=== PATIENT | female | born 1950 | race African-American/Black ===

== ENCOUNTER 2019-07-18 23:48 | Inpatient (IN) | payer OTHER ==
[~2019-07-18] VITALS: Ht 162.6 cm; Wt 98.7 kg
--- NOTE | ~2019-07-18 | HC ---
[facility] [place] [address] CONSULTATION Name: ZEINA HASTINGS Room #: 246-P [facility] IN M.R.#: [id number] Admission: 07/19/19 Attend Phys: Tank Castro MD Discharge: Date of : 54 Report #: [id number] THIS REPORT FOR: //name// CC: Tank SOTO PCP DATE OF SERVICE: 07/19/2019 CARDIOLOGY CONSULTATION HISTORY OF PRESENT ILLNESS: The patient is a 69-year-old -[place] female. She presents with some progressive shortness of breath, dyspnea, and hypertensive crisis. Systolic pressures were 190-200 in the Emergency Room with some evidence of cephalization of volume overload. Treated with IV Lasix. I initiated on a nitro drip as well as lisinopril. Blood pressures have improved some. Also, IV Lasix b.i.d. The EKG is sinus rhythm with LVH by voltage criteria, and decreased R-wave progression. Cannot rule out a prior septal infarct. She has had some chest pressure intermittently. She states she is minimally active. She is retired from [employer]. She lives with her son. She is . She has not seen physicians in over 10 years. She does not believe in blood pressure medications because she was not born with hypertension. She takes some herbal and she states that she cannot necessarily name them. She was recommended blood pressure and cholesterol medicines 10 years ago. PAST MEDICAL HISTORY: Positive for hypertension, obesity, hypercholesterolemia. No prior surgeries, tobacco use. SOCIAL HISTORY: She is , 3 children. Retired from [employer]. No alcohol. One pack a day since she was 22 years old. REVIEW OF SYSTEMS: Essentially negative except for some progressive dyspnea and generalized fatigue, some visual blurry vision in left eye, she states. LABORATORY DATA: LDL was elevated in the 140s, creatinine was okay. Creatinine was 0.8, potassium 3.0, sodium 145. H and H was 11.5 and 36.3. TSH 0.52. Troponin 0.08. PHYSICAL EXAMINATION: GENERAL: She is pleasant, alert. VITAL SIGNS: Blood pressure is currently 150s to 160s, pulse is 90s. HEENT: Eyes reveal xanthelasmas. Pharynx is clear. NECK: Shows preserved upstrokes without JVD or bruits. LUNGS: Clear. Anteriorly, some diminished breath sounds in the bases with a few crackles. CARDIOVASCULAR: Soft S4, S1, S2. No significant murmur. [facility] [address] [place] [address] CONSULTATION Name: ZEINA HASTINGS Room #: 246-P ADM IN ..#: [id number] Admission: 07/19/19 Attend Phys: Tank Castro MD Discharge: Date of : 54 Report #: [id number] ABDOMEN: Soft, nontender. EXTREMITIES: Reveal trace of edema, left greater than right. Distal pulses are intact. MUSCULOSKELETAL: Mild arthritic changes. ASSESSMENT: 1. Hypertensive crisis. 2. Acute presumed diastolic dysfunction with evidence of significant LVH, probable secondary to above. 3. Hypercholesterolemia. 4. Tobacco use. RECOMMENDATIONS AND PLAN: We will wean off the nitro drip. We will agree with lisinopril, would increase to 40 mg a day. We will add amlodipine 5. Bystolic would be best served as a vasodilating beta bakari 10 mg a day, Aldactone 25. This will be somewhat difficult to control hypertension, but I suspect there is definitely a sodium component to this as well as weight and activity may well benefit. We will obtain echo and EKG in the morning. We will consider plus minus stress testing this hospitalization or as an outpatient. We will continue to follow with you. Continue with the IV Lasix today, weaning off the nitro drip, initiating the p.o. medications. Thank you for asking me to assist in the care of this patient. By: 0932 [id number] /nt
[2019-07-18 23:48] VITALS: BP 262/154
[2019-07-19] VITALS (54 sets, daily range): BP systolic 122–199; BP diastolic 59–116
[2019-07-19 00:18] LABS: BASOPHILS 1.3 % (0.0-2.0); EOSINOPHILS 1.8 % (0.0-3.0); HEMATOCRIT 36.3 % (37.0-47.0); HEMOGLOBIN 11.5 gm/dL (12.0-15.0); LYMPHOCYTES 49.8 % (24.0-44.0); MCH 26.3 pg (26.0-34.0); MCHC 31.7 g/dL (28.0-37.0); MCV 82.9 fL (80.0-100.0); MONOCYTES 5.8 % (1.0-8.0); PLATELET COUNT 367 thou/uL (150-400); POLYS 41.3 % (36.0-66.0); RBC 4.38 mil/uL (4.20-5.00); RDW 15.1 % (10.5-14.5); WBC 14.6 thou/uL (4.0-11.0)
[2019-07-19 00:33] LABS: ALBUMIN 3.3 g/dL (3.4-5.0); ANION GAP 12 mmol/L (7-16); BUN 9 mg/dL (7-18); CHLORIDE 100 mmol/L (98-107); CO2 29 mmol/L (21-32); CREATININE 0.9 mg/dL (0.6-1.0); GLUCOSE 197 mg/dL (74-106); SGOT 33 U/L (15-37); SGPT 39 U/L (30-65); SODIUM 141 mmol/L (136-145); TOTAL BILIRUBIN 0.3 mg/dL (<0.1-1.0); TOTAL PROTEIN 8.5 g/dL (6.4-8.2); TROPONIN-I <0.06 ng/mL (<0.06)
[2019-07-19] MEDS ORDERED: IBU600 MG PO (00:38)
[2019-07-19 01:32] LABS: LARGE PLATELETS OCCASIONAL
--- NOTE | 2019-07-19 02:00 | NUR ---
Pt arrived ICU via stretcher, accompanied with ER staff and RT to room 246. She is being admit for Flash Pulmonary Edema. She appears tachypnic at rest. RR in low 30's and denies of any CP. RT placed pt back on BIPAP at this time. ST on monitor, BP 199/97 mmHg upon arrival. Continue Nitro gtt to maintain BP < 160 mmHg. Hx obtained, assessment completed. Care plans are initiated, continue working toward goals.
[2019-07-19 05:44] LABS: ANION GAP 12 mmol/L (7-16); BUN 9 mg/dL (7-18); CALCIUM 8.8 mg/dL (8.5-10.1); CHLORIDE 102 mmol/L (98-107); CHOLESTEROL 211 mg/dL (<200); CO2 31 mmol/L (21-32); CREATININE 0.8 mg/dL (0.6-1.0); GLUCOSE 123 mg/dL (74-106); HDL CHOLESTEROL 52 mg/dL (>40); LDL CHOLESTEROL 145 mg/dL (<100); SODIUM 145 mmol/L (136-145); TC:HDL 4.1 Ratio (Not establshd); TRIGLYCERIDE 70 mg/dL (<150); TROPONIN-I 0.08 ng/mL (<0.06); VLDL 14 mg/dL (<40)
[2019-07-19 05:49] LABS: URINE BILIRUBIN NEGATIVE (Negative); URINE BLOOD TRACE (Negative); URINE CLARITY CLEAR; URINE COLOR YELLOW; URINE GLUCOSE-RANDOM* NEGATIVE (Negative); URINE KETONES NEGATIVE (Negative); URINE LEUKOCYTES-REFLEX NEGATIVE (Negative); URINE NITRITE-REFLEX NEGATIVE (Negative); URINE PROTEIN (DIPSTICK) 2+ (Negative); URINE SPECIFIC GRAVITY 1.025 (1.005-1.035); URINE UROBILINOGEN 0.2 E.U./dl (0.2-1.0)
[2019-07-19 05:50] LABS: SERUM ASSESSMENT Clear
[2019-07-19 06:10] LABS: BACTERIA-REFLEX 1-9 Few /HPF (None Seen); CASTS None Seen /LPF (None Seen); CRYSTALS None Seen /LPF (None Seen); SQUAMOUS 0-3 Few /LPF (0-3); URINE RBC None Seen /HPF (0-2); URINE WBC-REFLEX None Seen /HPF (0-5)
--- NOTE | 2019-07-19 06:40 | NUR ---
BIPAP was removed per patient requested. Maintain O2 sat >96% on 3 liters via N/C. Less shortness of breath this am.
--- NOTE | 2019-07-19 15:16 | NUR ---
ASSUMED CARE OF PATIENT AT 1430. SPOKE WITH DR. SHARMA ABOUT NEED FOR CTA CHEST ORDERED. PHYSICIAN WOULD LIKE CTA TO BE DISCONTINUED.
--- NOTE | 2019-07-19 16:23 | NUR ---
NITRO GTT TITRATED OFF. WILL MONITOR BLOOD PRESSURES TO SEE IF PATIENT TOLERATES WITHOUT.
[2019-07-20] VITALS (21 sets, daily range): BP systolic 132–192; BP diastolic 56–124
[2019-07-20 05:34] LABS: CALCIUM 9.1 mg/dL (8.5-10.1); POTASSIUM 3.4 mmol/L (3.5-5.1)
--- NOTE | 2019-07-20 06:00 | NUR ---
PT IS AWAKE AND ALERT. UP TO TOILET SEVERAL TIMES TONIGHT TRYING TO HAVE A STOOL WITH NO SUCCESS., العراقي 350 CC UO THIS SHIFT. SINUS RHYTHM. HAVING SOME ABD CRAMPING. COLACE GIVEN. PT DID SLEEP SOME TONIGHT AFTER BENADRYL GIVEN. WILL CONT TO MONITOR.
--- NOTE | 2019-07-20 09:58 | 2DMMODE ---
[facility] [place] [address] 2 D/M-MODE ECHOCARDIOGRAM Name: ZEINA HASTINGS Room #: 246-P [facility] IN .R.#: [id number] Admission: 07/19/19 Attend Phys: Tank Castro MD Discharge: Date of : 54 Report #: [id number] THIS REPORT FOR: //name// APPROVED REPORT Study performed: 07/20/2019 08:16:23 EXAM: Comprehensive 2D, Doppler, and color-flow Echocardiogram Patient Location: ICU Room #: 246 Status: routine BSA: 2.04 HR: 75 bpm BP: 146/84 mmHg Rhythm: Sinus arrhythmia Indications Short of breath, HTN urgency, CHF, pulmonary edema. 2D Dimensions RVDd: 42.49 mm IVSd: 12.24 (7-11mm) LVOT Diam: 20.82 (18-24mm) LVDd: 54.50 mm PWd: 12.31 (7-11mm) Ascending Ao: 33.28 (22-36mm) LVDs: 47.26 (25-40mm) Aortic Root: 33.89 mm Volumes Left Atrial Volume (Systole) Single Plane 4CH: 52.58 mL Single Plane 2CH: 53.56 mL LA ESV Index: 28.00 mL/m2 Aortic Valve AoV Peak Jeffrey.: 1.18 m/s AO Peak Gr.: 5.55 mmHg LVOT Max P.76 mmHg LVOT Max V: 0.83 m/s NEYMAR Vmax: 2.40 cm2 Mitral Valve E/A Ratio: 2.2 MV Decel. Time: 200.83 ms MV E Max Jeffrey.: 1.10 m/s MV A Jeffrey.: 0.49 m/s MV PHT: 58.24 ms IVRT: 55.36 ms [facility] [place] [address] 2 D/M-MODE ECHOCARDIOGRAM Name: ZEINA HASTNIGS José Miguel Room #: 246-P [facility] IN ..#: [id number] Admission: 07/19/19 Attend Phys: Tank Castro MD Discharge: Date of : 54 Report #: [id number] Pulmonary Valve PV Peak Jeffrey.: 0.67 m/s PV Peak Gr.: 1.81 mmHg Pulmonary Vein P Vein S: 0.41 m/s P Vein D: 0.62 m/s P Vein S/D Ratio: 0.66 Tricuspid Valve TR Peak Jeffrey.: 2.89 m/s RAP Estimate: 15.00 mmHg TR Peak Gr.: 33.34 mmHg PA Pressure: 48.00 mmHg Left Ventricle The left ventricle is normal size. Mild concentric left ventricular hypertrophy. Left ventricular systolic function is moderately decreased. LVEF is 35%. Moderate diastolic dysfunction is present (pseudonormal filling). Right Ventricle Right ventricle is at the upper limits of normal. The right ventricular systolic function is normal. Atria Left atrium is mildly dilated. Right atrium is mildly dilated. Aortic Valve The aortic valve is normal in structure. No aortic regurgitation is present. There is no aortic valvular stenosis. Mitral Valve The mitral valve is normal in structure. Moderate mitral regurgitation. Tricuspid Valve The tricuspid valve is normal in structure. Mild tricuspid regurgitation. Estimated PAP is 45-50mmHg. Pulmonic Valve The pulmonary valve is normal in structure. Mild pulmonic regurgitation. Great Vessels The aortic root is normal in size. The ascending aorta is normal in [facility] [address] [place] [address] 2 D/M-MODE ECHOCARDIOGRAM Name: ZEINA HASTINGS Room #: 246-P ADM IN M.R.#: [id number] Admission: 07/19/19 Attend Phys: Tank Castro MD Discharge: Date of : 54 Report #: [id number] size. IVC is dilated and collapses <50% with inspiration. Pericardium There is no pericardial effusion. <Conclusion> The left ventricle is normal size. Left ventricular systolic function is moderately decreased. LVEF is 35%. Right ventricle is at the upper limits of normal. Left atrium is mildly dilated. Right atrium is mildly dilated. The aortic valve is normal in structure. The mitral valve is normal in structure. Moderate mitral regurgitation. The tricuspid valve is normal in structure. Mild tricuspid regurgitation. Estimated PAP is 45-50mmHg. The pulmonary valve is normal in structure. Mild pulmonic regurgitation. There is no pericardial effusion. <ELECTRONICALLY SIGNED> By: Bari Segal MD 07/20/19956 6 6 Bari Segal MD /INF
--- NOTE | 2019-07-20 10:00 | NUR ---
SR/SINUS ARRHYTHMIA, ZOFRAN GIVEN WITH DECREASE IN NAUSEA, TOLERATED PARTIAL BREAKFAST. C/O OF LEFT LOWER ABDOMINAL DISCOMFORT, FEELS LIKE SHE NEEDS TO HAVE A STOOL. STOOL SOFTENER GIVEN. RECENT INCREASE IN NAUSEA- MILK OF MAGNESIA GIVEN. AMBULATED, RESTING QUIETLY IN CHAIR.
--- NOTE | 2019-07-20 11:55 | NUR ---
TRANSFERRED PER WHEELCHAIR/MONITOR PER [employer], RN AND PT'S SON FOR INITIAL PART OF STRESS TEST.
--- NOTE | 2019-07-20 12:29 | NUR ---
RETURNED FROM [employer] [facility] IN WHEELCHAIR ON MONITOR ACCOMPANIED BY RN AND PT'S SON.
--- NOTE | 2019-07-20 16:09 | EKG ---
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
--- NOTE | 2019-07-20 16:12 | NUR ---
Case opened to follow for dc planning needs. Consult rec'd as the pt does not have a pcp. Chip Mucker visited with the pt and her son at bedside. The pt is a&ox4 and indicates that she lives in a home with lots of steps to her bedroom upstairs. She is normally indep with gait and adl's and does not use an assistive device. She no longer drives and relies on her son for transport. She reports her old pcp is no longer in practice. She is retired and has medicare part A coverage along with her [employer] long term plan to help with her part B expenses. She reports she had a mini stroke years ago and it only affected her lt leg. She gets her scripts at [facility]. Chip Mucker encouraged her to call [employer] customer service to assist her with finding a pcp in her area. Pt seemed reluctant to answer questions. Pt's son was at bedside and he lives with her. She c/o nausea and stomach pain. Nursing updated. Cm role introduced. Pt denied any dc concerns. Will remain available should needs arise.
--- NOTE | 2019-07-20 18:30 | NUR ---
SCHEDULED IV LASIX PREVIOUSLY GIVEN. العراقي DC'D WITH 10CC FLUID REMOVED FROM BALLOON, WELL TOLERATED. PT UP AND DOWN SEVERAL TIMES THROUGHOUT SHIFT TO ATTEMPT TO HAVE A STOOL, UNSUCCESSFULLY. ABDOMINAL DISCOMFORT RESOLVED AT THIS TIME. PT IMPULSIVE, OFTEN FORGETS TO USE CALL LIGHT ESPECIALLY WHEN GETTING OUT OF CHAIR OR OFF BSC. BED/CHAIR ALARM ENABLED APPROPIATELY. TAKING DEEP BREATHS AND COUGH, NONPRODUCTIVE, NOT SHORT OF AIR WITH ACTIVITY. POOR APPETITE, TOLERATING FLUIDS. SON PRESENT, PROVIDING SUPPORT TO HIS MOTHER. UPDATING PT AND SON ON ALL CARES GIVEN.
[2019-07-21 02:47] VITALS: BP 136/67
--- NOTE | 2019-07-21 03:10 | NUR ---
ASSUMED CARE AT 1900, ASSESSMENT COMPLETED. PT REPORTED PAIN IN LEFT ABD RADIATING TO BACK WELL SOME NAUSEA; BLOOD PRESSURE ELEVATED AT START OF SHIFT. GAVE PRN ZOFRAN AND HYDRALAZINE. PT UP TO TOILET, HAD A SMALL, SOFT/LOOSE STOOL. C/O AGAIN OF NAUSEA, THREW UP TWICE LIQUID WITH SOME SMALL BROWN PIECES; GAVE SCHEDULED IVP PEPCID WHICH RELIEVED THE NAUSEA. NPO AT MIDNIGHT FOR STRESS TEST IN AM. ABOUT 0130, PT AND HER SON INFORMED SHE WOULD BE TRANSFERRED TO MS UNIT. SON LEFT BRIEFLY; PT THEN SLIGHTLY AGITATED, GETTING OUT OF BED, STATING SHE WAS LEAVING TO GO HOME. PT STATED SHE WAS UPSET THAT "I AM SEEING THINGS, PEOPLE IN MY ROOM, THINGS THAT AREN'T THERE, AND IT'S BECAUSE OF MEDS YOU ARE GIVING ME IN MY IV. PEOPLE ARE GIVING ME THINGS I DON'T WANT." PT HAD EXPRESSED EARLIER THAT SHE SAW A RAGGEDY AB DOLL ON THE FLOOR. EXPLAINED AT LENGTH WHAT MEDICATIONS SHE HAD RECEIVED OVERNIGHT. EXPLAINED ABOUT THE AMA PROCESS AND THE IMPORTANCE OF UPCOMING MEDICAL TESTS. PT'S SON RETURNED, ALSO STATING SHE MIGHT WANT TO LEAVE. ENCOURAGED PT TO TRANSFER UPSTAIRS TO THE [facility] WHERE IT WAS QUIETER/MORE PRIVACY, COMPLETE THE STRESS TEST TODAY AND DISCUSS CONCERNS WITH THE DOCTOR. REPORT CALLED TO MARÍA ELENA ON [facility] AT 0215, TRANSFERRED BY W/C AT 0230; PT IN STABLE CONDITION, NO FURTHER CONCERNS.
--- NOTE | 2019-07-21 03:33 | NUR ---
PT WAS TRANSFERRED FROM ICU. AXOX4. SON AT BEDSIDE. RW IV REMOVED D/T INFILTRATION WHEN ARRIVED ON UNIT. VSS. PT AND SON INTRODUCED TO UNIT AND ROOM. VERBALIZES UNDERSTADING. EXPLAINED AGAIN EXTENSIVELY ON THE IMPORTACNE OF KEEPING PT ON NPO FOR STRESS TEST IN AM AND HOW INGESTING ANYTHING BEFORE TESTING CAN HAVE RISKS. ALSO HAD A DISCUSSION ABOUT KEEPING PT ON FALL ALARM AND PRECAUTIONS D/T PT'S MEDICAL CONDITION. PT AND SON AGREES AT THIS TIME. NO S/S ACUTE DISTRESS NOTED OR REPORTED AT THIS TIME. WILL CONT TO MONITOR FOR ANY CHANGES IN CONDITION.
[2019-07-21 08:05] VITALS: BP 128/67
[2019-07-21] MEDS ORDERED: BENAZEPRIL HCL40 MG PO (10:24)
[2019-07-21] MEDS ORDERED: FELODIPINE ER10 MG PO (10:24)
[2019-07-21] MEDS ORDERED: BYSTOLIC10 MG PO (10:24)
[2019-07-21] MEDS ORDERED: LASIX 40 MG TAB40 MG PO (10:25)
[2019-07-21 10:32] VITALS: BP 128/67
--- NOTE | 2019-07-21 14:56 | EKG ---
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 Designer: APARNA : 1950 Requested By: Keegan Olivera Order Number: [id number] MD: Solo Vogel Measurements Intervals [place] Rate: 139 P: 50 WV: 95 QRS: 21 QRSD: 97 T: QT: 356 QTc: 542 Interpretive Statements Sinus tachycardia LVH with secondary repolarization abnormality Anterior ST elevation, probably due to LVH No previous ECG available for comparison Electronically Signed On 07-21-2019 14:56:30 GRADER MEAT by Solo Vogel [email or web address] <ELECTRONICALLY SIGNED> By: Solo Vogel MD 07/21/19 1456 56 56 Solo Vogel MD /TEAGN
--- NOTE | 2019-07-21 14:57 | EKG ---
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
--- NOTE | 2019-07-21 15:02 | NUR ---
CARE TEAM INDICATED THAT PT IS MEDICALLY STABLE TO DC HOME THIS DAY. NO OTHER CM INTERVENTION INDICATED. CASE CLOSED.
--- NOTE | 2019-07-21 18:11 | NUR ---
Assumed pt care this am, pt went down for a cardiac stress test. VS have been stable, medications and diet were well tolerated. Son came to visit and was rude wanting to speak to the MD with regards to pt being dc. Pt and sons expectations were to be DC yesterday, informed pt a d son repeatedly as per Dr. Winn, we are awaitnig the results of the stress test then he will make a decision to dc. Pt and family were getting irritable and wanted answers elenita, text MD, informed house sup as well. Reached out to the cardiac team for follow up. Was able to covince pt not to go AMA, Spoke to Carolyn advise she is low probability and is dc from their end. INformed LUCY MONTOYA instructions and prescriptions givne to the pt and son. Pt does not go to any doctor and self medicates using herbs and natural remedies. POC followed, pt was able to ambulate the halls with ease. POC followed no signs or verbalizations of distress have been noted. IV removed, pt was picked up by the son, pt is now dc
== END 2019-07-21 18:21 | disposition home or self-care (01) | DRG 291 ==
LOC: ER 23:48 → EROBS 07-19 01:25 → ICU 07-19 01:25 → 4W 07-21 02:45
PROVIDERS: Emergency Medicine; Nurse Practitioner Acute Care; ADMIT Hospitalist
PROC: 5A09357 Assistance with Respiratory Ventilation, Less than 24 Consecutive Hours, Continuous Positive Airway Pressure (ICD-10-PCS; principal; 2019-07-19)
DX: I11.0 Hypertensive heart disease with heart failure (principal); J96.01 Acute respiratory failure with hypoxia; I16.1 Hypertensive emergency; J81.1 Chronic pulmonary edema; J44.1 Chronic obstructive pulmonary disease with (acute) exacerbation; I50.33 Acute on chronic diastolic (congestive) heart failure; E66.9 Obesity, unspecified; E78.00 Pure hypercholesterolemia, unspecified; F17.210 Nicotine dependence, cigarettes, uncomplicated; E87.6 Hypokalemia; E78.5 Hyperlipidemia, unspecified; E11.65 Type 2 diabetes mellitus with hyperglycemia; Z79.899 Other long term (current) drug therapy; Z68.37 Body mass index [BMI] 37.0-37.9, adult; Z71.6 Tobacco abuse counseling
CPT/HCPCS: 10078

== ENCOUNTER 2019-12-02 13:01 | Inpatient (IN) | payer OTHER ==
[~2019-12-02] VITALS: Ht 162.6 cm; Wt 83.0 kg
[~2019-12-02 13:01] MED LIST: BENAZEPRIL HCL40 MG PO; BYSTOLIC10 MG PO; FELODIPINE ER10 MG PO; IBU600 MG PO; LASIX 40 MG TAB40 MG PO
[2019-12-02 13:04] VITALS: BP 123/74
[2019-12-02 13:35] LABS: EOSINOPHILS 0.3 % (0.0-3.0); HEMATOCRIT 35.9 % (37.0-47.0); HEMOGLOBIN 11.6 gm/dL (12.0-15.0); LYMPHOCYTES 23.4 % (24.0-44.0); MCH 27.3 pg (26.0-34.0); MCHC 32.3 g/dL (28.0-37.0); MCV 84.5 fL (80.0-100.0); PLATELET COUNT 359 thou/uL (150-400); POLYS 70.3 % (36.0-66.0); RBC 4.24 mil/uL (4.20-5.00); RDW 16.4 % (10.5-14.5)
[2019-12-02 13:56] LABS: ALBUMIN 2.9 g/dL (3.4-5.0); CALCIUM 9.2 mg/dL (8.5-10.1); CREATININE 1.2 mg/dL (0.6-1.0); TOTAL BILIRUBIN 0.4 mg/dL (<0.1-1.0); TOTAL PROTEIN 7.5 g/dL (6.4-8.2)
[2019-12-02 13:58] LABS: POTASSIUM 2.7 mmol/L (3.5-5.1)
[2019-12-02 14:16] LABS: MAGNESIUM 1.9 mg/dL (1.8-2.4); PHOSPHORUS 3.8 mg/dL (2.5-4.9)
[2019-12-02 14:59] LABS: URINE BILIRUBIN 2+ (Negative); URINE BLOOD NEGATIVE (Negative); URINE CLARITY CLEAR; URINE COLOR YELLOW; URINE GLUCOSE-RANDOM* NEGATIVE (Negative); URINE KETONES 2+ (Negative); URINE LEUKOCYTES-REFLEX NEGATIVE (Negative); URINE NITRITE-REFLEX NEGATIVE (Negative); URINE PROTEIN (DIPSTICK) 1+ (Negative)
[2019-12-02 15:05] LABS: ICTOTEST (BILI CONFIRMATORY) Positive (Negative)
[2019-12-02 15:07] LABS: CASTS None Seen /LPF (None Seen); MUCUS >6 Heavy strn/LPF (None Seen); SQUAMOUS >10 Many /LPF (0-3)
[2019-12-02 15:08] LABS: BACTERIA-REFLEX None Seen /HPF (None Seen); CRYSTALS None Seen /LPF (None Seen); URINE RBC None Seen /HPF (0-2); URINE WBC-REFLEX 6-15 Few /HPF (0-5)
[2019-12-02 16:48] VITALS: BP 139/79
[2019-12-02] MEDS ORDERED: SPIRONOLACTONE25 MG PO (17:14)
[2019-12-02] MEDS ORDERED: FUROSEMIDE 20 M20 MG PO (17:14)
[2019-12-02 17:15] VITALS: BP 152/97
[2019-12-02 17:17] LABS: BE(vivo) 1.4 mmol/L (-2 to +3); HCO3 24.7 mmol/L (22.0-26.0); PCO2 34.2 mmHg (35.0-45.0); PO2 89.6 mmHg (80.0-100.0); pH 7.476 (7.360-7.450); sO2 97.4 % (92.0-98.0)
[2019-12-02 17:25] VITALS: BP 139/79
[2019-12-02 18:48] VITALS: BP 152/97
--- NOTE | 2019-12-02 18:53 | NUR ---
PT CARE ASSUMED 1744. ASSESSMENT CHARTED. MEDICATION CHARTED. PT RESPONDS SLOWLY TO ALL QUESTIONS. PT COMPLAINS OF RT FLANK PAIN. PT CURRENTLY ON CLEAR LIQUIDS.
[2019-12-03] VITALS: BP 157/89
[2019-12-03 06:32] VITALS: BP 123/87
[2019-12-03 08:00] VITALS: BP 134/72
--- NOTE | 2019-12-03 08:16 | NUR ---
ASSUMED PT CARE AT APPROXIMATELY 1900, PT IS ALERT, AWAKE AND ORIENTEDX4, MAKES NEEDS KNOWN, DENIES CHEST PAIN, VSS, C/O RIGHT FLANK PAIN, PRN MEDICATION GIVEN ORDERED, C/O OF DIFFICULTY CATCHING HER BREATH, PUT ON 2L NC, POTASSIUM GIVEN ORDERED, RESTING WITH NO DITRESS NOTED, PASSED ON REPORT TO THE DAY NURSE
--- NOTE | 2019-12-03 10:19 | EKG ---
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: ts : 1950 Requested By: Debbie Jefferson Order Number: [id number] MD: Richardson Felix Measurements Intervals [place] Rate: 88 P: 78 RI: 142 QRS: 11 QRSD: 91 T: 187 QT: 372 QTc: 450 Interpretive Statements Sinus rhythm Atrial premature complexes Nonspecific ST and T wave abnormality Compared to ECG 07/20/2019 07:57:52 Atrial premature complex(es) now present ST and T wave abnormality is now present Electronically Signed On 12-03-2019 10:17:57 CDT by Richardson Felix [email or web address] <ELECTRONICALLY SIGNED> By: Richardson Felix MD, [facility] 12/03/19 1017 1452 1452 Richardson Felix MD, [facility] /EPI
[2019-12-03 12:00] VITALS: BP 135/68
[2019-12-03 12:07] LABS: ALBUMIN 2.9 g/dL (3.4-5.0); CALCIUM 9.1 mg/dL (8.5-10.1); POTASSIUM 3.6 mmol/L (3.5-5.1); TOTAL BILIRUBIN 0.3 mg/dL (<0.1-1.0); TOTAL PROTEIN 7.3 g/dL (6.4-8.2)
[2019-12-03 16:00] VITALS: BP 138/67
--- NOTE | 2019-12-03 19:15 | NUR ---
RECEIVED PT'S CARE AROUND 0740; PT. ON BED; ALERT; DURING ASSESSMENT PT. AX04; C/O PAIN OVER NECK; AM MEDICATIONS GIVEN; EDUCATED ABOUT CALLING BEFORE STANDING FROM BED; NEEDS TO BE REMAINED ABOUT IT; IMPULSIVE FROM TIME TO TIME; DURING THE AFTERNOON PT. GOT OUT OF BED; WHILE NURSE IN THE ROOM PTCollette RODRIGUEZ "IS MY DAUGHTER ON THE FLOOR?"; REMAINED ABOUT BEING IN THE HOSPITAL; ST. UNDERSTANDING; PRN PAIN MEDICATION GIVEN DURING THE AFTERNOON; SR ON THE MONITOR; FLUIDS STOPPED EARLY ON THE MORNING; ASSESSMENT CHARGED; FOLLOWING POC; PASSED ON REPORT;
[2019-12-03 21:10] VITALS: BP 134/80
--- NOTE | 2019-12-04 02:15 | NUR ---
PT AMBULATING TO BATHROOM WITH STANDBY ASSIST AND IS TOLERATING FAIR. TYLENOL PROVIDING PAIN RELIEF. PLAN FOR THORACENTESIS 12/03. RESTING COMFORTABLY. NO NEEDS VOICED. CALL LIGHT WITHIN REACH. FREQUENT OPBSERVATION.
[2019-12-04 04:00] VITALS: BP 14/70
[2019-12-04 07:05] VITALS: BP 143/80
[2019-12-04 07:31] LABS: APTT 36.4 Seconds (24.5-32.8); INR 1.1; PROTIME 11.2 Seconds (9.3-11.4)
[2019-12-04 11:15] VITALS: BP 159/90
[2019-12-04 14:36] LABS: CLARITY CLOUDY; COLOR RED; SOURCE RIGHT CHEST; TOTAL VOLUME 35 mL
[2019-12-04 14:39] LABS: SOURCE RIGHT CHEST
[2019-12-04 14:40] LABS: SOURCE RIGHT CHEST
--- NOTE | 2019-12-04 14:54 | NUR ---
Assumed patient care at 0715. Vital signs stable, LSCTA (diminished).Patient NPO since midnight. She went for a CT Scan of the Chest w/o Contrast and a Thoracentesis this afternoon.
[2019-12-04 15:00] LABS: BF NUCLEATED CELLS 969; BF RBC 39525
[2019-12-04 15:08] LABS: BF CRYSTALS No Crystals seen
[2019-12-04 15:36] VITALS: BP 147/81
[2019-12-04 15:53] LABS: BF MACROPHAGE 7; BF NEUTROPHILS 4
--- NOTE | 2019-12-04 19:26 | NUR ---
TRANSFERRED FROM . VERY CONFUSED, BUT PLEASANT ON ARRIVAL. DESPITE BED ALARM, WAS ABLE TO ELOPE FROM [facility], AND WAS FOUND RIDING UP THE ESCALATOR ON THE FIRST FLOOR. DESPITE MULTIPLE ATTEMPTS AT REORIENTING, CONTINUES TO TRY AND LEAVE UNIT TO GO SMOKE. 1:[address] FOR PATIENTS SAFETY. OOB WITH SBA. GOOD APPETITE. PLACED CALL TO PATIENTS SON TO GIVE AN UPDATE, AND TO FIND OUT IF PATIENT IS CONFUSED AT HOME, NO RETURN PHONE CALL. FALL PRECAUTIONS AND SITTER REMAIN IN PLACE.
[2019-12-04 22:30] LABS: URINE BILIRUBIN 1+ (Negative); URINE BLOOD NEGATIVE (Negative); URINE CLARITY CLEAR; URINE COLOR YELLOW; URINE GLUCOSE-RANDOM* NEGATIVE (Negative); URINE KETONES 1+ (Negative); URINE NITRITE-REFLEX NEGATIVE (Negative); URINE PROTEIN (DIPSTICK) TRACE (Negative); URINE SPECIFIC GRAVITY 1.015 (1.005-1.035); URINE UROBILINOGEN 0.2 E.U./dl (0.2-1.0)
[2019-12-04 22:31] LABS: URINE LEUKOCYTES-REFLEX 1+ (Negative)
[2019-12-04 22:39] LABS: CASTS None Seen /LPF (None Seen); CRYSTALS None Seen /LPF (None Seen); SQUAMOUS 4-10 Moderate /LPF (0-3); URINE RBC 0-2 Rare /HPF (0-2)
[2019-12-04 22:40] LABS: URINE WBC-REFLEX 6-15 Few /HPF (0-5)
--- NOTE | 2019-12-04 23:25 | NUR ---
ASSUMED PT CARE AT
[2019-12-05 05:03] VITALS: BP 150/91
[2019-12-05 05:52] LABS: HEMATOCRIT 35.5 % (37.0-47.0); HEMOGLOBIN 11.4 gm/dL (12.0-15.0); MCH 27.2 pg (26.0-34.0); MCHC 32.1 g/dL (28.0-37.0); MCV 84.9 fL (80.0-100.0); RBC 4.18 mil/uL (4.20-5.00); RDW 16.6 % (10.5-14.5); WBC 8.2 thou/uL (4.0-11.0)
[2019-12-05 06:05] LABS: ALBUMIN 2.8 g/dL (3.4-5.0); CALCIUM 9.4 mg/dL (8.5-10.1); CREATININE 0.9 mg/dL (0.6-1.0); MAGNESIUM 1.9 mg/dL (1.8-2.4); POTASSIUM 3.5 mmol/L (3.5-5.1); TOTAL BILIRUBIN 0.4 mg/dL (<0.1-1.0); TOTAL PROTEIN 7.2 g/dL (6.4-8.2)
[2019-12-05 12:08] LABS: BODY FLUID ALBUMIN 2.8 g/dL (Not Estab.); BODY FLUID AMYLASE 34 U/L (()); BODY FLUID CREATININE 0.7 mg/dL (Not Estab.); BODY FLUID GLUCOSE 96 mg/dL (()); BODY FLUID LDH 270 IU/L (()); BODY FLUID PROTEIN 4.4 g/dL (())
--- NOTE | 2019-12-05 15:47 | NUR ---
PT ADMITTED RELATED TO HYPOXIC RESP FAILURE; PLEURAL EFFUSION; PROGRESSIVE SOB. CM REVIEWED CHART AND SPOKE WITH CARE TEAM. CM CALLED AND SPOKE WITH PT. SHE INDICATED SHE LIVES IN A TOWNHOUSE WITH HER SON WITH 4 STEPS TO ENTER AND 12 STEPS INSIDE. 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 PT INIDCATED NO HOME HEALTH OR SKILLED REHAB HX. PT INDICATED SHE PLANS TO RETURN HOME ONCE MEDIALLY STABLE. CM ASKED IF CARE TEAM RECOMMEND POST ACUTE CARE STAY IF PT WOULD BE RECEPTIVE. SHE INDICATED IT WOULD DEPENDENT ON WHERE IT WAS. CM CALLED AND SPOKW WITH PT'S SON AND HE INDICATED THAT PT HAD BEEN SLIGHTLY CONFUSED SINCE [facility] STAY IN [facility] BUT THAT SHE HAD BEEN HOME ALONE FOR LONG PERIODS OF TIME WHEN HE WAS WORKING 10 HR SHIRTS UP UNTIL A WEEK AGO WITH NO ISSUE. HE INDICATED THAT IT'S HIS MOTHER'S CHOICE WHERE SHE GOES UPON DC. LIST GIVEN TO PT TO REVIEW. CM TO FOLLOW INDICATED.
--- NOTE | 2019-12-05 19:12 | NUR ---
VSS-AFEBRILE. OCCASIONAL C/O ABDOMINAL DISCOMFORT, REFUSES ANY MEDICATION. POOR APPETITE. REMAINS CONFUSED BUT PLEASANT. SITTER AT BEDSIDE. NO DIFFICULTY VOIDING, NO BM THIS SHIFT.
[2019-12-05 19:26] VITALS: BP 135/63
--- NOTE | 2019-12-05 23:45 | NUR ---
ASSUMED PT CARE AT 1900. PT MORE RELAXED TONIGHT. 1:1 SITTER FROM [id number], THEN JUST FREQ OBSERVATION FROM STAFF. STILL NONCOMPLIANT WITH FALL RISK INTERVENTIONS. C/O ABD PAIN, PO PAIN MEDS GIVEN WITH RELIEF. OFFERED SNACKS, PT DECLINES. MORE ORIENTED, ENGAGED WITH STAFF IN CONVERSATIONS ABOUT HER CHILDREN. REALLY ANXIOUS TO GO HOME. HAS NOT SLEPT AT ALL, WILL CONTINUE TO MONITOR OVERNIGHT.
[2019-12-06 03:30] VITALS: BP 125/85
[2019-12-06 08:01] VITALS: BP 144/78
[2019-12-06] MEDS ORDERED: NICOTINE TRANSD14 M1 TRANSDERM (13:12)
[2019-12-06 13:44] VITALS: BP 144/78
--- NOTE | 2019-12-06 14:15 | NUR ---
ASSUMED PATIENT CARE AT 0700. PATIENT AT ELOPMENT RISK, WANTS TO GO HOME, OTHERWISE FINE. 1:1 SITTER.PATIENT ON ROOM AIR WITH O2 SATURATION OF 96%. PATIENT SAID, SHE HAD PAIN ON NECK, RIGHT SIDE, PAIN OF 7 AND PAIN MEDICINE GIVEN. REASSESED PAIN WITH PAIN SCORE OF 3. PATIENT LOOKS RELAXED. PATIENT HAS A DISCHARGE ORDER.
--- NOTE | 2019-12-06 15:58 | NUR ---
CARE TEAM INDICATED THAT PT IS MEDICALLY STABLE TO DISHCARGE HOME THIS DAY. CARE TEAM INDICATED PT IS TO DC TO HOME WITH SELF CARE. PT'S SON MIRA TO PROVIDE TRANSPORT HOME. NO OTHER CM INTERVENTION INDICATED. CASE CLOSED.
--- NOTE | 2019-12-11 13:13 | PATH ---
[facility] [place] [address] PATHOLOGY RPT PROCEDURE Name: ZEINA HASTINGS Room #: 435-P DIS IN M.R.#: [id number] Admission: 12/02/19 Date of : 54 Discharge: 12/06/19 Report #: [id number] Path Case #: [id number] Note LCA Accession Number: [id number] TESTS RESULT FLAG UNITS REF RANGE LAB Clinician Provided Cytology Information No. of containers..01 Other (Miscellaneous) Source: [A] 01 PLEURAL DIAGNOSIS: [A] 02 PLEURAL SUSPICIOUS FOR MALIGNANCY. THIS INTERPRETATION INCLUDES EVALUATION OF A CELL BLOCK. COMMENT, THE CELL BLOCK REVEAL HIGHLY ATYPICAL SMALL CELLS WITH MOLDING THESE CELLS ARE POSITIVE FOR TTF1, CK7, ROBEL-EP4 AND NEGATIVE FOR NAPSIN AND P40. FEW MESOTHELIAL CELLS STAIN WITH CALRETININ. BASED ON THESE STAINS THIS IS A POORLY DIFFERENTIATED TUMOR WITH TTF1 POSITIVE FAVOR SMALL CELL CARCINOMA. THIS CASE IS ALSO REVIEWED BY DR. JASSI MODI. THIS CASE WAS ALSO DISCUSSED WITH DR. WERNER DELGADILLO ON 12/07/2019 AT 3PM. Pathologist ICD10: 02 C34.91 Signed out by: 02 Jonathan Hunter MD, Pathologist NPI- [id number] Performed by: 01 Vanessa Emily, Transportation Maintenance Specialist (ASCP) Gross description: 01 10 ML, CLDY ORANGE/RED, 1 TP 1 CB /LCS 12/05/2019 1124 Local FLAG LEGEND: L-Low Normal,H-High Normal,LL-Alert Low,HH-Alert High <-Panic Low,>-Panic High,A-Abnormal,AA-Critical Abnormal Performed at: 01 [place] [facility] [address] [place] [address] [address] [place] [address] Shayne Eid MD, [address] [address] [address] Jassi Canales MD, Specimen Comment: A courtesy copy of this report has been sent to [phone] Specimen Comment: Report sent to [address] [address] PATHOLOGY RPT PROCEDURE Name: DARLINGZEINA José Miguel Room #: 435-P DIS IN ..#: [id number] Admission: 12/02/19 Date of : 54 Discharge: 12/06/19 Report #: [id number] Path Case #: [id number] Specimen Comment: A duplicate report has been generated due to demographic updates. Performed at: 01 [facility] [place] [address] [facility] [address], [place], [place] [id number] MD Shayne Eid MD Phone: [phone]
== END 2019-12-06 15:00 | disposition home or self-care (01) | DRG 180 ==
LOC: ER 13:01 → EROBS 15:53 → 2N 15:53 → 4S 12-04 15:30
PROVIDERS: Pediatrics; Physician Assistant; ADMIT Internal Medicine
PROC: 0W993ZZ Drainage of Right Pleural Cavity, Percutaneous Approach (ICD-10-PCS; principal; 2019-12-04)
DX: C34.91 Malignant neoplasm of unspecified part of right bronchus or lung (principal); J96.01 Acute respiratory failure with hypoxia; G93.41 Metabolic encephalopathy; N17.9 Acute kidney failure, unspecified; I50.22 Chronic systolic (congestive) heart failure; J91.8 Pleural effusion in other conditions classified elsewhere; I42.9 Cardiomyopathy, unspecified; J98.11 Atelectasis; F05 Delirium due to known physiological condition; I11.0 Hypertensive heart disease with heart failure; R73.9 Hyperglycemia, unspecified; E87.6 Hypokalemia; R91.8 Other nonspecific abnormal finding of lung field; F17.210 Nicotine dependence, cigarettes, uncomplicated; E78.5 Hyperlipidemia, unspecified; R63.4 Abnormal weight loss; Z79.899 Other long term (current) drug therapy
CPT/HCPCS: 10081; 10100; 10195

== ENCOUNTER → 2019-12-27 | Outpatient (CLI) | payer OTHER ==
[~2019-12-27] MED LIST changes: +FUROSEMIDE 20 M20 MG PO; +NICOTINE TRANSD14 M1 TRANSDERM; +SPIRONOLACTONE25 MG PO
[2019-12-27 10:42] LABS: HEMATOCRIT 33.9 % (37.0-47.0); HEMOGLOBIN 10.7 gm/dL (12.0-15.0); MCH 27.2 pg (26.0-34.0); MCHC 31.6 g/dL (28.0-37.0); MCV 86.1 fL (80.0-100.0); RBC 3.94 mil/uL (4.20-5.00); RDW 16.1 % (10.5-14.5); WBC 11.1 thou/uL (4.0-11.0)
[2019-12-27 10:45] LABS: CALCIUM 9.1 mg/dL (8.5-10.1); CREATININE 1.2 mg/dL (0.6-1.0); POTASSIUM 3.1 mmol/L (3.5-5.1)
[2019-12-27 10:46] LABS: APTT 40.1 Seconds (24.5-32.8); INR 1.2
== END | disposition home or self-care (01) ==
LOC: LAB 08:36 → LABMALL 08:36
PROVIDERS: Pediatrics
DX: J90 Pleural effusion, not elsewhere classified (principal); R06.02 Shortness of breath; I10 Essential (primary) hypertension; F17.210 Nicotine dependence, cigarettes, uncomplicated; Z98.890 Other specified postprocedural states; Z79.899 Other long term (current) drug therapy

== ENCOUNTER → 2020-01-09 | Outpatient (CLI) | payer OTHER ==
[~2020-01-09] MED LIST changes: +PROTONIX40 M1 PO; +SODIUM BICARBO650 M3 PO
== END ==
LOC: ULTRA 08:50
PROVIDERS: ATTEND Pediatrics
DX: J90 Pleural effusion, not elsewhere classified (principal)

== ENCOUNTER 2020-01-14 10:13 | Inpatient (IN) | payer OTHER ==
[2020-01-14] VITALS (27 sets, daily range): BP systolic 95–165; BP diastolic 48–135
[~2020-01-14] VITALS: Ht 162.6 cm; Wt 75.4 kg
--- NOTE | ~2020-01-14 | HC ---
[facility] [place] [address] CONSULTATION Name: ZEINA HASTINGS Room #: 203-P ADM IN M.R.#: [id number] Admission: 01/14/20 Attend Phys: Christian Velarde MD Discharge: Date of : 54 Report #: [id number] THIS REPORT FOR: cc: JOSEFINA - Family physician unknown JOSEFINA - Family physician unknown Skyler Oneal MD ~ CC: Christian ROCHA unknown DATE OF SERVICE: 01/22/2020 HISTORY OF PRESENT ILLNESS: This is a 69-year-old female patient who was evaluated by me for the possibility of encephalopathy. When I saw this patient, she said she is feeling very hot. In fact, she has taken her gown out, but was able to talk. I reviewed the patient's records. She will not give any history, but history is that this patient is admitted when she was found on the floor with a blood pressure of 60/40. She apparently has a history of lung cancer. She is being followed by Oncology. Otherwise, history is very limited, both from the chart as well as from the patient. She had an MRI done today and I reviewed that and that does not appear to be showing any acute changes. Her white count is pretty high. She is admitted with GI bleed with low hemoglobin. She is being followed by multiple physicians. She has a kidney injury. This is all I can get for the review of systems, which is relevant. PAST MEDICAL HISTORY: Positive for lung cancer. FAMILY HISTORY: Unavailable. SOCIAL HISTORY: She has a son. We will try to reach him. PHYSICAL EXAMINATION: Indicate the patient is alert. She can talk. She even told me what month it is, but she is not very cooperative. When I asked her to move all 4 extremities, it looks like she can, but she will not cooperate with cranial nerve examination, which was attempted. Her blood pressure is 156/96, respiration is 24, pulse is 104, and temperature is 97.5. She did have an MRI, which was reviewed and that does not appear to be showing any definite acute abnormality, which can explain the patient's symptoms. IMPRESSION: This patient's symptom appeared to be secondary to encephalopathy. I will get an EEG done. I ordered a TSH and vitamin B12 to complete the workup. I would like to talk to the patient's son as well as primary care physician tomorrow to see what can be done about this patient. [address] [address] CONSULTATION Name: ZEINA HASTINGS Room #: 203-P [facility] IN ..#: [id number] Admission: 01/14/20 Attend Phys: Christian Velarde MD Discharge: Date of : 54 Report #: [id number] Thank you very much for this referral. By: 01 0156 Skyler Oneal MD /nt
--- NOTE | ~2020-01-14 | HC ---
[facility] [place] [address] CONSULTATION Name: ZEINA HASTINGS Room #: 244-P ADM IN M.R.#: [id number] Admission: 01/14/20 Attend Phys: Christian Velarde MD Discharge: Date of : 54 Report #: [id number] THIS REPORT FOR: cc: JOSEFINA - Family physician unknown FAM - Family physician unknown David Mercado MD ~ CC: Christian Velarde [facility] unknown DATE OF SERVICE: 01/14/2020 REASON FOR CONSULTATION: Small cell lung cancer. REQUESTING PHYSICIAN: Dr. Velarde. HISTORY OF PRESENT ILLNESS: The patient is a pleasant 69-year-old -[place] woman who has diagnosis of small cell lung cancer diagnosed recently. She is well known to my partner, Dr. Do. She received first cycle of chemo-immunotherapy 2 weeks ago. She received carboplatin eccentric and etoposide. She was doing okay after chemo. This morning, she was found by her son unresponsive on the floor with about a cup of bright red bloody stool with dark tarry stool. She was brought to the Emergency Room. Initially, she was unresponsive. She was given volume resuscitation and blood transfusion was started. She is awake now. She is on nonrebreather face mask. She is able to communicate through nodding and making signs. She is feeling better. She does not have any fevers. Denies abdominal pain. She did not have abdominal pain prior to admission. PAST MEDICAL HISTORY: Significant for her small cell lung cancer and hypertension. SOCIAL HISTORY: She has a history of smoking unable to get full history because of the patient is not able to give me extensive history. REVIEW OF SYSTEMS: See above. PHYSICAL EXAMINATION: GENERAL: Reveals thin woman with face mask, on oxygen. VITAL SIGNS: Blood pressure 110/59. On admission, blood pressure was 95/59. Heart rate 112, temperature 97.0. NECK: Supple. CARDIAC: Normal S1, S2. LUNGS: Clear. ABDOMEN: Nondistended. SKIN: Does not reveal bruises. There are no signs of epistaxis or ____ bleeding currently. [facility] [address] [place] [address] CONSULTATION Name: ZEINA HASTINGS Room #: 244-P ADM IN M.R.#: [id number] Admission: 01/14/20 Attend Phys: Christian Velarde MD Discharge: Date of : 54 Report #: [id number] LABORATORY DATA: White count 20.6, hemoglobin 7.8, platelets 46, MCV 87.5, few schistocytes reported. Sodium 156, potassium 2.6, creatinine 3.1, alkaline phosphatase 180, ALT 84. Lactic acid 11.4. LDH 695. PT 12.7, INR 1.2, PTT 36.0. Chest x-ray, small right pleural effusion with right basilar infiltrate significantly improved since the prior study. ASSESSMENT AND PLAN: Anemia, most likely post-hemorrhagic. Agree with blood transfusion. Thrombocytopenia, most likely related to bleeding and chemotherapy. Few schistocytes are reported. Clinical suspicious of TTP is quite low. Still avoid platelet transfusion at this point. Continue to monitor platelets. GI bleeding, agree with transfusion of packed red blood cells. GI consult. The patient is not bleeding currently. She reports having a history of peptic ulcers, apparently according to the ER physician. I would avoid platelets at this point, but if she continues to have bleeding, consider fresh frozen plasma. We will recheck platelets shortly. If she continues to have progressive thrombocytopenia, I will consider to order ____test. Thank you very much for allowing me to participate in the care of this patient. By: 1316 1347 David Mercado MD /nt
[~2020-01-14 10:13] MED LIST changes: -PROTONIX40 M1 PO; -SODIUM BICARBO650 M3 PO
[2020-01-14 10:30] LABS: HEMOGLOBIN 7.8 gm/dL (12.0-15.0)
[2020-01-14 10:33] LABS: HEMATOCRIT 24.8 % (37.0-47.0); MCH 27.6 pg (26.0-34.0); MCHC 31.5 g/dL (28.0-37.0); MCV 87.5 fL (80.0-100.0); PLATELET COUNT 46 thou/uL (150-400); RBC 2.83 mil/uL (4.20-5.00); RDW 16.9 % (10.5-14.5); WBC 20.6 thou/uL (4.0-11.0)
[2020-01-14 10:43] LABS: INR 1.2; PROTIME 12.7 Seconds (9.3-11.4)
[2020-01-14 10:49] LABS: CALCIUM 9.8 mg/dL (8.5-10.1); CREATININE 3.1 mg/dL (0.6-1.0); TROPONIN-I 0.07 ng/mL (<0.06)
[2020-01-14 10:53] LABS: POTASSIUM 2.6 mmol/L (3.5-5.1)
[2020-01-14 11:01] LABS: ABSOLUTE NEUTROPHILS 10.5 thou/uL (1.4-8.2); METAMYELOCYTES 4 %; MYELOCYTES 1 %
--- NOTE | 2020-01-14 11:05 | EKG ---
[facility] [place] [address] ELECTROCARDIOGRAM REPORT Name: ZEINA HASTINGS [facility] [id number] Admission: 01/14/20 Attend Phys: Discharge: Date of : 54 Report #: [id number] THIS REPORT FOR: cc: FAM - Family physician unknown FAM - Family physician unknown Solo Vogel MD ~ THIS REPORT FOR: //name// [facility] ED Test Date: 2020-01-14 Test Time: 10:21:03 Pat Name: ZEINA HASTINGS Department: Room: Gender: F Intern Product Marketing Manager: KK : 1950 Requested By: Herbie Turpin Order Number: [id number] MD: Solo Vogel Measurements Intervals [place] Rate: 120 P: 43 MI: 124 QRS: -6 QRSD: 91 T: 189 QT: 314 QTc: 444 Interpretive Statements Sinus tachycardia with bursts of atrial tachycardia. Compared to ECG 12/02/2019 14:52:16 Electronically Signed On 01-14-2020 11:04:51 CDT by Solo Vogel [email or web address] <ELECTRONICALLY SIGNED> By: Solo Vogel MD 01/14/20 1104 20 20 Solo Vogel MD /TEGAN
[2020-01-14 11:12] LABS: SCHISTOCYTES FEW
[2020-01-14 11:15] LABS: TOXIC GRANULATION 1+
[2020-01-14 11:17] LABS: PROMYELOCYTES 3 %
[2020-01-14 12:07] LABS: DIRECT BILIRUBIN < 0.1 mg/dL (<0.1-0.2); SGOT 69 U/L (15-37); SGPT 84 U/L (30-65); TOTAL BILIRUBIN 0.3 mg/dL (0.2-1.0); TOTAL PROTEIN 5.7 g/dL (6.4-8.2)
--- NOTE | 2020-01-14 12:50 | NUR ---
LAB TO MEET PT IN ICU FOR BLOOD DRAW
[2020-01-14 13:40] LABS: BE(vivo) -4.2 mmol/L (-2 to +3); HCO3 20.2 mmol/L (22.0-26.0); PCO2 34.2 mmHg (35.0-45.0); PO2 244.5 mmHg (80.0-100.0); sO2 99.6 % (92.0-98.0)
--- NOTE | 2020-01-14 15:21 | NUR ---
CONSULTED TO PLACE A CENTRAL LINE FOR A PATIENT ADMITTED TO ICU, DECREASED LOC AND GI BLEED. SHE IS ON CHEMO. LACTIC ACID ELEVATED AND AKF. RENAL HAS BEEN CONSULTED. DISCUSSED CENTRAL LINE PLACEMENT WITH THE PATIENT AND HER SON. HE SIGNED CONSENT AFTER RISKS AND BENIFITS WERE DISCUSSED. A RIGHT #6F TRIPLE LUMEN CENTRAL LINE WAS PALCED AFTER A BEDSIDE TIMEOUT WAS COMPLETED. THE RIGHT JUGULAR WAS WIDLEY PATENT. LINE WAS 25CM AND ADVANCED WITHOUT DIFFICULTY. A STAT CHEST XRAY WAS ORDERED TO CONFIRM PLACEMENT.
--- NOTE | 2020-01-14 15:41 | NUR ---
Unit of PRBC started in the Emergency Dept completed at 1540 with 100 ml of NS (see nursing intervention entered by ED nurse). Unable to document on this intervention while pt in the ICU. No signs of reaction. All of the unit was transfused. Post transfusion vital signs at 1541: Temp 96.3 axillary Heart rate 95 Blood pressure 148/52 (MAP 84) Respiration 30 O2 sat 91%.
[2020-01-14 16:38] LABS: HEMOGLOBIN 9.2 gm/dL (12.0-15.0)
[2020-01-14 16:41] LABS: ABSOLUTE RETIC COUNT 0.0083 10^6/uL; HEMATOCRIT 27.7 % (37.0-47.0); OBSERVED RETIC COUNT 0.25 % (0.6-2.6)
[2020-01-14 16:54] LABS: ALBUMIN 1.8 g/dL (3.4-5.0); CALCIUM 8.5 mg/dL (8.5-10.1); CREATININE 2.5 mg/dL (0.6-1.0); PHOSPHORUS 4.1 mg/dL (2.5-4.9)
[2020-01-14 16:57] LABS: POTASSIUM 2.3 mmol/L (3.5-5.1)
--- NOTE | 2020-01-14 19:00 | NUR ---
Pt pulled on her catheter. Pt reporting discomfort and catheter no longer draining urine. Catheter was removed and attempt made to reinsert a new 16 welsh cooley catheter. Unsuccessful in placing the new catheter. Unable to advance catheter into the urinary meatus. Oncoming nurse inform that catheter will need to be placed and she verbalized understanding. Order has been received for placement of soft wrist restraints due to pt picking and pulling at monitoring devices and equipment.
--- NOTE | 2020-01-14 19:15 | NUR ---
Report given to oncoming nurse. Replacement of critically low potassium in progress-see emar. Son in for visit prior to going home. Update was called Second unit of blood cancelled per Dr Blanco. No evidence of active bleeding.
--- NOTE | 2020-01-14 20:21 | NUR ---
01/14/20: Admit to ICU from the ED. One unit of PRBC's infusing on arrival to ICU. 01/14/20: Central line placed right IJ by IV nurse See Admission hx. Two dark charcoal colored stools. Increasing confusion. Wrist restraints started.
[2020-01-14 22:24] LABS: MCV 84.5 fL (80.0-100.0); WBC 18.9 thou/uL (4.0-11.0)
[2020-01-14 22:25] LABS: HEMOGLOBIN 8.5 gm/dL (12.0-15.0); MCH 27.5 pg (26.0-34.0); MCHC 32.6 g/dL (28.0-37.0); RBC 3.07 mil/uL (4.20-5.00); RDW 15.8 % (10.5-14.5)
--- NOTE | 2020-01-14 23:49 | NUR ---
PT HAS BEEN CONFUSED, ORIENTED TO SELF. SOMETIMES PT UNDERSTANDS SHE IS IN THE HOSPITAL. C/O ABDOMINAL PAIN. PRN FENTANYL AND ZOFRAN GIVEN. العراقي CATHETER PLACED PER DR ORDER. PARTIAL BED BATH GIVEN. NO BM YET THIS SHIFT. PT HAS BEEN RESTLESS AND ASKING TO GET OUT OF BED. RE-ORIENTATION PROVIDED. BILATERAL SOFT WRIST RESTRAINTS IN PLACE PT PICKS AT LINES AND TUBING. SHE ATTEMPTED TO PULL OUT HER العراقي. ORDER RECIEVED FOR 1X DOSE ATIVAN. ORAL CARE PROVIDED SINCE PT IS NPO. FALL PRECAUTIONS IN PLACE. WILL CONTINUE TO MONITOR CLOSELY. NOT PROGRESSING WELL TOWARD POC GOALS.
[2020-01-15] VITALS (28 sets, daily range): BP systolic 102–146; BP diastolic 45–85
--- NOTE | 2020-01-15 03:36 | NUR ---
AFTER PT WAS GIVEN DOSE OF ATIVAN, RESTLESSNESS IMPROVED AND SHE WENT TO SLEEP. RESPIRATIONS EVEN AND UNLABORED. VSS. AFEBRILE. REPOSITIONED TO PREVENT SKIN BREAKDOWN. REMAINS IN SOFT WRIST RESTRAINTS. PROTONIX GTT INFUSING ORDERED. BG 66 AROUND MIDNIGHT. GIVEN D10 PER HYPOGLYCEMIA PROTOCOL. BG IMPROVED. PROGRESSING SLOWLY TOWARD POC GOALS. WILL CONTINUE TO MONITOR FURTHER.
[2020-01-15 05:37] LABS: RBC 2.85 mil/uL (4.20-5.00); RDW 16.4 % (10.5-14.5)
[2020-01-15 05:40] LABS: HEMATOCRIT 24.4 % (37.0-47.0); MCH 28.1 pg (26.0-34.0); MCHC 32.9 g/dL (28.0-37.0); MCV 85.6 fL (80.0-100.0); WBC 20.2 thou/uL (4.0-11.0)
[2020-01-15 05:54] LABS: ALBUMIN 1.7 g/dL (3.4-5.0); CREATININE 2.9 mg/dL (0.6-1.0); TOTAL BILIRUBIN 0.3 mg/dL (0.2-1.0); TOTAL PROTEIN 5.5 g/dL (6.4-8.2)
[2020-01-15 06:06] LABS: POTASSIUM 2.3 mmol/L (3.5-5.1)
--- NOTE | 2020-01-15 06:22 | NUR ---
العراقي CATHETER REMAINS IN PLACE. URINE OUTPUT LOW. BLADDER SCANNED, ONLY 35ML RETAINED IN BLADDER. POTASSIUM 2.[address] JOHNSON NOTIFIED AND HE ROUNDED ON PATIENT. SEPSIS SCREEN POSITIVE. DR HORTON NOTIFIED. NO NEW ORDERS RECEIVED. WILL GIVE REPORT TO ONCOMING NURSE.
--- NOTE | 2020-01-15 10:42 | NUR ---
chart review. unable to visit with pt rt resting. will cont following as needed for dc needs. gi consulted. on chemo rt cancer. will cont following as needed for dc needs.
--- NOTE | 2020-01-15 10:54 | 2DMMODE ---
[facility] [place] [address] 2 D/M-MODE ECHOCARDIOGRAM Name: ZEINA HASTINGS Room #: 244-P ADM IN M.R.#: [id number] Admission: 01/14/20 Attend Phys: Christian Velarde MD Discharge: Date of : 54 Report #: [id number] THIS REPORT FOR: cc: FAM - Family physician unknown FAM - Family physician unknown Richardson Felix MD MERGED WITH [facility] ~ APPROVED REPORT Study performed: 01/15/2020 10:17:54 EXAM: Comprehensive 2D, Doppler, and color-flow Echocardiogram Patient Location: ICU Room #: 244 Status: routine BSA: 1.72 HR: 92 bpm BP: 135/64 mmHg Rhythm: Arrhythmia Other Information Study Quality: Adequate/no patient participation Indications Question Afib. Hx: LVEF 35% in 06/2019. 2D Dimensions RVDd: 31.63 mm IVSd: 11.35 (7-11mm) LVOT Diam: 21.79 (18-24mm) LVDd: 42.51 mm PWd: 10.93 (7-11mm) Ascending Ao: 30.99 (22-36mm) LVDs: 32.98 (25-40mm) Aortic Root: 34.21 mm Volumes Left Atrial Volume (Systole) Single Plane 4CH: 38.55 mL Single Plane 2CH: 38.93 mL LA ESV Index: 24.00 mL/m2 Aortic Valve AoV Peak Jeffrey.: 1.60 m/s AO Peak Gr.: 10.22 mmHg LVOT Max P.02 mmHg LVOT Max V: 1.00 m/s [facility] [address] [place] [address] 2 D/M-MODE ECHOCARDIOGRAM Name: ZEINA HASTINGS Room #: 244-P [facility] IN ..#: [id number] Admission: 01/14/20 Attend Phys: Leslye Burk Discharge: Date of : 54 Report #: [id number] NEYMAR Vmax: 2.34 cm2 Mitral Valve E/A Ratio: 0.7 MV Decel. Time: 313.25 ms MV E Max Jeffrey.: 0.63 m/s MV A Jeffrey.: 0.87 m/s MV PHT: 90.84 ms IVRT: 99.19 ms Pulmonary Valve PV Peak Jeffrey.: 0.81 m/s PV Peak Gr.: 2.60 mmHg Pulmonary Vein P Vein S: 0.61 m/s P Vein A: 0.31 m/s P Vein D: 0.39 m/s P Vein A Dur.: 124.6 msec P Vein S/D Ratio: 1.56 Tricuspid Valve TR Peak Jeffrey.: 3.07 m/s RAP Estimate: 5.00 mmHg TR Peak Gr.: 38.00 mmHg PA Pressure: 43.00 mmHg Left Ventricle The left ventricle is normal size. There is normal LV segmental wall motion. Mild concentric left ventricular hypertrophy. The left ventricular systolic function is normal. The left ventricular ejection fraction is within the normal range. LVEF is 50-55%. Mild diastolic dysfunction is present (impaired relaxation pattern). Right Ventricle The right ventricle is normal size. The right ventricular systolic function is normal. Atria Left atrium is mildly dilated. The right atrium size is normal. Aortic Valve The aortic valve is normal in structure. No aortic regurgitation is present. There is no aortic valvular stenosis. Mitral Valve The mitral valve is normal in structure. Trace mitral regurgitation. [facility] [place] [address] 2 D/M-MODE ECHOCARDIOGRAM Name: ZEINA HASTINGS Room #: 244-P ADM IN M.R.#: [id number] Admission: 01/14/20 Attend Phys: Leslye Burk Discharge: Date of : 54 Report #: [id number] Tricuspid Valve The tricuspid valve is normal in structure. Mild tricuspid regurgitation. Estimated PAP is 45mmHg. Pulmonic Valve The pulmonary valve is normal in structure. Trace pulmonic regurgitation. Great Vessels The aortic root is normal in size. The ascending aorta is normal in size. IVC is normal in size and collapses >50% with inspiration. Pericardium There is no pericardial effusion. <Conclusion> The left ventricular systolic function is normal. There is normal LV segmental wall motion. Mild concentric left ventricular hypertrophy. LVEF is 50-55%. Mild diastolic dysfunction The aortic valve is normal in structure. No aortic regurgitation or stenosis. The mitral valve is normal in structure. Trace mitral regurgitation. Mild tricuspid regurgitation. Estimated pulmonary artery pressure of 45mmHg. There is no pericardial effusion. <ELECTRONICALLY SIGNED> By: Richardson Felix MD, FACC 01/15/20 1054 1054 1054 Richardson Felix MD, FACC /INF
--- NOTE | 2020-01-15 11:27 | NUR ---
1027- Nurse paged DR. Lock for urine output of 50ml this morning. Physician returned call, no new orders, continue to monitor.
[2020-01-15 11:48] LABS: CHOLESTEROL 115 mg/dL (<200); HDL CHOLESTEROL 19 mg/dL (>40); LDL CHOLESTEROL 63 mg/dL (<100); TC:HDL 6.1 Ratio (Not establshd); TRIGLYCERIDE 167 mg/dL (<150); VLDL 33 mg/dL (<40)
[2020-01-15 14:20] LABS: HEMATOCRIT 21.7 % (37.0-47.0); HEMOGLOBIN 7.1 gm/dL (12.0-15.0)
--- NOTE | 2020-01-15 14:32 | NUR ---
discussed during los, few more day then should be able to dc home no needs. pt is current using o2 per nc which she does not use at home. has support from her son mr jose bhatt. noted per chart, lives in house and does stay alone. has bsc. was independent when feeling ok. steps to enter and steps inside the home. past visit here, she has went home no needs. report passed on from bedside nurse and will cont following as needed for dc needs.
--- NOTE | 2020-01-15 19:16 | NUR ---
Pt progressing towards plan of care. No bowel movement this shift.
[2020-01-15 21:04] LABS: HEMOGLOBIN 6.9 gm/dL (12.0-15.0)
[2020-01-16] VITALS (30 sets, daily range): BP systolic 129–179; BP diastolic 60–104
--- NOTE | 2020-01-16 00:37 | NUR ---
PT CONFUSED, REMAINS IN RESTRAINTS TRIED TO PULL CENTRAL LINE OUT WHEN RELEASED. EGD CONSENT GIVEN PER PHONE BY PT SON. HGB 6.9 AT 2100. HAD ONE TARRY LIQUID STOOL. PRBC INFUSING ORDERED. NPO AFTER MN. REPORT GIVEN TO ONCOMING RN.
[2020-01-16 06:09] LABS: HEMATOCRIT 24.9 % (37.0-47.0); HEMOGLOBIN 8.2 gm/dL (12.0-15.0)
[2020-01-16 06:31] LABS: ALBUMIN 1.7 g/dL (3.4-5.0); CREATININE 2.5 mg/dL (0.6-1.0); PHOSPHORUS 1.5 mg/dL (2.5-4.9); POTASSIUM 3.1 mmol/L (3.5-5.1)
--- NOTE | 2020-01-16 07:13 | NUR ---
RECEIVED REPORT FROM SPECIAL DIET COOK.ASSUMED CARE AT MIDNIGHT.PATIENT ON BLOOD TRANSFUSION.NO REACTION NOTED.HGB INCREASED TO 8.2.BLOOD GLUCOSE 47. ONE AMP OF D50 GIVEN.BLOOD GLUCOSE INCREASED TO 82.MONITOR SHOWS AFIB.NPO SINCE MIDNIGHT FOR A POSSIBLE EGD TODAY.POC CONTINUED.
--- NOTE | 2020-01-16 07:49 | EKG ---
[facility] [address] ELECTROCARDIOGRAM REPORT Name: ZEINA HASTINGS Room #: 244-P ADM IN M.R.#: [id number] Admission: 01/14/20 Attend Phys: Christian Velarde MD Discharge: Date of : 54 Report #: [id number] THIS REPORT FOR: cc: JOSEFINA - Family physician unknown FAM - Family physician unknown Richardson Felix MD [facility] ~ THIS REPORT FOR: //name// [facility] Test Date: 2020-01-15 Test Time: 09:11:01 Pat Name: ZEINA HASTINGS Department: Room: [facility] Gender: F Telemedicine Physician: Theodora LUNA : 1950 Requested By: Christian Velarde Order Number: [id number] MD: Richardson Felix Measurements Intervals [place] Rate: 89 P: AL: QRS: -13 QRSD: 85 T: 207 QT: 378 QTc: 460 Interpretive Statements Atrial fibrillation occasional premature ventricular complexes Nonspecific repol abnormality Compared to ECG 01/14/2020 10:21:03 Sinus tachycardia no longer present Electronically Signed On 01-16-2020 7:48:24 CDT by Richardson Felix [email or web address] <ELECTRONICALLY SIGNED> By: Richardson Felix MD, [facility] 01/16/20 0748 0911 0 Richardson Felix MD, [facility] /EPI
--- NOTE | 2020-01-16 09:15 | NUR ---
PT SON HERE. VERY HOSTILE. WANTS TO KNOW WHERE I WAS. I HAD BEEN ON BREAK WHEN PT SOILED HERSELF, THE OTHER TWO RNS ON THE POD WERE IN THE ROOM HELPING. EMOTIONAL SUPPORT AND REASSURANCE GIVEN. PT SON AT BEDSIDE INSISTS RESTRAINTS STAY OFF.
--- NOTE | 2020-01-16 10:55 | NUR ---
cm consulted for dcp, home health. pt possible going to have egd today. unable to visit with pt via phone call. spoke with beside nurse, she still having diff talking. son at bedside, cm will reach out to her son nova. will cont following as needed for dc needs.
--- NOTE | 2020-01-16 12:15 | NUR ---
PT SON NOT SATIFIED WITH THE WAY WE PLACED PT ON BEDPAN. BEDPAN REPOSITIONED PER SON REQUEST. SON MAKING COMMENTS THAT SHE IS NOT BEING CARED FOR VERY WELL. REASSURANCE GIVEN. CHARGE NURSE NOTIFIED.
--- NOTE | 2020-01-16 13:30 | NUR ---
TRANSFERED TO CCU VIA BED ALL BELONGINGS WITH PT. SON REMIANS HOSTILE, DOESN'T WANT TO KEEP HIS MASK UP ETC. SOLE TRIMMER ASKED HIM VERY POLITELY TO MEET US OVER IN . PT SON INSISTED HE NOT Leave his mom and states he knows how you nurses dont take care of her. He was reassured that we are taking good care of his mom but that the rules dictate that he cannot walk in the back issa with us. He then complied and met us in her room. Report given.
--- NOTE | 2020-01-16 14:00 | NUR ---
PT. ARRIVED ON THE UNIT FROM ICU. PT IS CALM AT THIS TIME, SQUEEZES HANDS STRONG BILATERALLY. AWARE OF HER LOCATION AND FOLLOWS COMMANDS. SHE HAS A SLIGHTLY ODD LOOK TO HER THOUGH, SHE STARES AT YOU WITH A BLANK EXPRESSION ON HER FACE AND HER EYES. SHE APPEARS TO HAVE A CERTAIN AMOUNT OF EXPRESSIVE DYSPHAGIA SHE ONLY SPEAKS WHEN ASKED A QUESTION AND THEN HAS ONE WORD RESPONSES ONLY FOR SUCH. SON IS AT HER BEDSIDE. I ASKED HIM TO PLEASE LET US KNOW IF HE IS LEAVING THE ROOM SHE WAS PULLING ON HER LINES YESTERDAY AND HAD TO BE RESTRAINED WHEN LEFT ALONE. HE SAID HE WOULD LET US KNOW IF HE WAS LEAVING THE FLOOR/ROOM.
--- NOTE | 2020-01-16 14:03 | NUR ---
SHE IS DRY AND NO BOWEL MOVEMENTS NOTED AT THIS TIME. URINARY CATHETER IS IN PLACE AND DRAINING WELL.
--- NOTE | 2020-01-16 14:20 | NUR ---
WENT INTO PT'S ROOM WHEN IN ICU TO ASSIST W MOVING PT TO CCU BED.PT'S SON AT BEDSIDE.SON HAD FACE SHIELD ON,WEARING IT BENEATH NOSE.ASKED HIM TO PLEASE KEEP MASK COVERING NOSE.ASKED HIM TO HEAD OVER TO CCU PT WAS TRANSFERRING OVER.HE BECAME VERBALLY BELLIGERANT & WAS HOSTILE TOWARDS ALL THE NURSES IN THE ROOM.ASSURED HIM THAT HIS MOM WAS BEING TAKEN CARE OF WHEN HE WAS RANTING THAT THE NURSES WERE NOT CARING WELL FOR HIS MOM.PT TRANSFERRED TO CCU BED W/O INCIDENCE,MOVED TO 203 & SON HAD BELONGINGS FROM ROOM W HIM.--VW
--- NOTE | 2020-01-16 18:03 | NUR ---
PT. FINISHED EATING HER DINNER, SON FED HER.PLACED ONBEDPAN NO STOOL AT THIS TIME. PT. C/O FEELING "SHORT OF BREATHE-REPOSITIONED HER AND PUT HER ON NASAL CANNULA 2.0 AT THIS TIME SEEIF IT ALLEVIATES THESE SYMPTOMS POSSIBLY. WILL MONITOR.
[2020-01-17 00:25] VITALS: BP 116/86
--- NOTE | 2020-01-17 05:21 | NUR ---
ASSUMED PT CARE AT 1900. PT LAYING IN BED. NO SIGN OF DISTRESS NOTED IN PT. PT IS ALERT AND CONFUSED. DENIES ANY PAIN. FALL PRECAUTION IN PLACE. ASSESSMENT COMPLETED AND DOCUMENTED. SCHEDULED MEDS ADMINISTERED TO PT. CALL LIGHT WITHIN REACH. PT IS AWAKE THROUGH THE NIGHT. VITAL SIGNS STABLE.CONTINUE TO MONITOR PT. NURSING POC.
[2020-01-17 05:35] VITALS: BP 164/96
--- NOTE | 2020-01-17 07:17 | EKG ---
[facility] [place] [address] ELECTROCARDIOGRAM REPORT Name: ZEINA HASTINGS Room #: 203-P ADM IN M.R.#: [id number] Admission: 01/14/20 Attend Phys: Christian Velarde MD Discharge: Date of : 54 Report #: [id number] THIS REPORT FOR: cc: JOSEFINA - Family physician unknown FAM - Family physician unknown Richardson Felix MD [facility] ~ THIS REPORT FOR: //name// [facility] Test Date: 2020-01-16 Test Time: 07:51:15 Pat Name: ZEINA HASTINGS Department: Room: [facility] Gender: F Dedicated Truck Driver: Mihir NORWOOD : 1950 Requested By: Sally Green Order Number: [id number] MD: Richardson Felix Measurements Intervals [place] Rate: 97 P: 70 ND: 132 QRS: -7 QRSD: 90 T: 204 QT: 376 QTc: 478 Interpretive Statements Sinus rhythm Atrial premature complexes Borderline repolarization abnormality Compared to ECG 01/15/2020 09:11:01 Atrial premature complex(es) now present Atrial fibrillation no longer present Ventricular premature complex(es) no longer present Electronically Signed On 01-17-2020 7:16:57 CDT by Richardson Felix [email or web address] <ELECTRONICALLY SIGNED> By: Richardson Felix MD, [facility] 01/17/20 0716 075 075 Richardson Felix MD, FAC /EPI
[2020-01-17 08:02] VITALS: BP 178/94
--- NOTE | 2020-01-17 09:28 | HC ---
[facility] [place] [address] CONSULTATION Name: ZEINA HASTINGS Room #: 203-P ADM IN M.R.#: [id number] Admission: 01/14/20 Attend Phys: Christian Velarde MD Discharge: Date of : 54 Report #: [id number] THIS REPORT FOR: cc: JOSEFINA - Family physician unknown FAM - Family physician unknown Dale Lock MD ~ CC: Christian ROCHA unknown REASON FOR CONSULTATION: Elevated creatinine. REASON FOR PRESENTATION: Altered mental status and weakness. HISTORY OF PRESENT ILLNESS: This is obtained from the medical chart. The patient is very confused and not able to provide me with the history. She is known to have small cell lung cancer. This was diagnosed recently. She started chemotherapy and the details of those are not available for us. Unfortunately, the patient was found unresponsive on the floor with bright red blood and dark tarry stool. She was brought for to the Emergency Room where she was found to have major electrolyte issues including sodium of 156, potassium of 2.6, acute kidney injury with a creatinine of 3.1 mandating Nephrology consultation. She was also found to have an elevated white blood cell count at 20.2. I was asked to assist with the management of her acute kidney injury. PAST MEDICAL HISTORY: Obtained from the medical chart, recent small cell lung carcinoma, receiving chemotherapy. Other details are not available. ALLERGIES: None. SOCIAL HISTORY: Unobtainable given the patient's current mental status. MEDICATIONS: 1. Bystolic. 2. Felodipine. REVIEW OF SYSTEMS: Unobtainable given the patient's current mental status. PHYSICAL EXAMINATION: VITAL SIGNS: Blood pressure is 135/64, pulse rate is 100, respiratory rate is 25. HEAD AND NECK: Dry mucous membrane. CHEST: No crackles. CARDIOVASCULAR: Regular with no rub detected. ABDOMEN: Soft, nontender. EXTREMITIES: Lower extremities, no edema. LABORATORY DATA: Reviewed. Creatinine on presentation was 3.1. Her [facility] [address] [place] [address] CONSULTATION Name: ZEINA HASTINGS Room #: [address] [place] [address] [place] [facility].#: [id number] Admission: 01/14/20 Attend Phys: Christian Velarde MD Discharge: Date of : 54 Report #: [id number] recent creatinine on 12/27/2019 was 1.2. She has a white blood cell count of 20.2. Hemoglobin was 7.8. Platelet was 29. Sodium was down to 149 from 156. Creatinine was 2.3. Lactate level was markedly elevated on presentation at 11.4; however, repeat was 1.5. ASSESSMENT AND IMPRESSION: 1. Acute kidney injury. 2. Hypernatremia. 3. Hypokalemia. 4. Lung cancer. PLAN: 1. Her acute kidney injury seems to be related to dehydration. This is probably related to reduced oral intake while undergoing chemotherapy. 2. The patient was started on appropriate IV fluids to address her hypernatremia. Sodium is being replaced. She has minimal urine output at this point and I will continue to follow. Oncology consultation for her leukocytosis and her lung cancer. 3. She has normal kidney function few months ago and hopefully she should continue to improve her kidney numbers and get back to her usual. <ELECTRONICALLY SIGNED> By: Dale Lock MD 01/17/20 0928 0727 0737 Dale Lock MD /nt
[2020-01-17 10:30] LABS: HEMATOCRIT 26.5 % (37.0-47.0); HEMOGLOBIN 8.7 gm/dL (12.0-15.0); MCH 28.1 pg (26.0-34.0); MCV 85.2 fL (80.0-100.0); RBC 3.11 mil/uL (4.20-5.00); RDW 17.1 % (10.5-14.5); WBC 34.2 thou/uL (4.0-11.0)
[2020-01-17 10:44] LABS: ALBUMIN 1.8 g/dL (3.4-5.0); CALCIUM 8.1 mg/dL (8.5-10.1); CREATININE 1.9 mg/dL (0.6-1.0); PHOSPHORUS 3.4 mg/dL (2.5-4.9); POTASSIUM 3.1 mmol/L (3.5-5.1)
[2020-01-17 11:37] LABS: METAMYELOCYTES 3 %; MYELOCYTES 5 %
[2020-01-17 11:38] LABS: ANISOCYTOSIS 1+; OVALOCYTES FEW
[2020-01-17 11:40] LABS: PLATELET COUNT 96 thou/uL (150-400); PROMYELOCYTES 1 %
[2020-01-17 12:30] VITALS: BP 149/108
[2020-01-17 16:20] VITALS: BP 153/95
--- NOTE | 2020-01-17 17:07 | PATH ---
[facility] [address] [place] [address] PATHOLOGY RPT PROCEDURE Name: ZEINA HAWKINS Room #: 203-P ADM IN M.R.#: [id number] Admission: 01/14/20 Date of : 54 Discharge: Report #: [id number] Path Case #: [id number] [facility] Accession Number: [id number] . 01 Material submitted: . stomach - BIOPSY OF GASTRIC ULCER . 01 Clinical history: . GI bleed, dark stools . 02 Diagnosis: Gastric mucosa, gastric ulcer, endoscopic biopsy: - Moderate active gastritis associated with ulceration as well as features of reactive gastropathy. - Negative for intestinal metaplasia or atrophy. - Negative for definitive Helicobacter pylori organisms on the properly controlled immunohistochemical stain, see comment. (IUV:yesi; 01/17/2020) QMS 01/17/2020 1410 Local . 02 Comment: Examination shows moderate active gastritis associated with ulceration. The surface epithelium shows vili-form architecture suggestive of reactive gastropathy. There is a pigmented extraneous material lining the surface epithelium, thus interfering with the properly controlled immunohistochemical stain. Definitive Helicobacter pylori organisms are not identified. Findings may be suggestive of chemical gastritis, or gastritis induced due to other possible etiologies. Please correlate with clinical, endoscopic as well as microbiological studies if indicated. (IUV:yesi; 01/17/2020 . 02 Electronically signed: . Martha Day MD, Pathologist NPI- [id number] . 01 Gross description: . The specimen is received in formalin, labeled "Zeina Hawkins, BX of gastric ulcer" and consists of 2 fragments of friable pink-arevalo tissue measuring 0.3 x 0.2 cm and 0.5 x 0.2 cm which are entirely submitted in A1. (SDY; 01/16/2020) SYU/SYU 01/16/2020 1605 Local . 02 Pathologist provided ICD-10: K29.70 . 02 CPT . [address] [address] PATHOLOGY RPT PROCEDURE Name: ZEINA HAWKINS Room #: 203-P [facility] IN M.R.#: [id number] Admission: 01/14/20 Date of : 54 Discharge: Report #: [id number] Path Case #: [id number], [id number] Specimen Comment: A courtesy copy of this report has been sent to [phone] Specimen Comment: [phone] Specimen Comment: Report sent to / DR BELLO Performed at: [address], [place], [place] [id number] MD Shayne Eid MD Phone: [phone] Performed at: [address] [id number] MD Martha Day MD Phone: [phone]
--- NOTE | 2020-01-17 17:54 | NUR ---
08:00 AM PT. WORKING HARDER TO BREATHE THIS AM. PLACED PT. ON 3 LITERS NASAL CANNULA AT THIS TIME AND OWRK OF BREATHING IMPROVED. PT. S BLOOD PRESSURE SLIGHTLY ELEVATED WELL AND REPORTING PAIN AT CATHETER SITE. NO EXUDATE FROM VAGINAL AREA BUT TUBING OF CATHETER IS FAR OUT WELL WILL DISCUSS WITH THE TEAM.
--- NOTE | 2020-01-17 17:55 | NUR ---
10:00AM-PT. COUGHING UP PHLEGM TODAY INCREASED AMOUNTS. MEDICATED WITH PAIN MEDICATION FOR VAGINAL PAIN AT THIS TIME. PT CONTINUES TO C/O PAIN AT SITE AND PULLED ON HER CATHTER -RESTRAINED HAND WITH A BLANKET AT THIS TIME. SON AT BEDSIDE WELL TO MONITOR HER COMPLIANCE WITH TREATMENT, CHANGED LINENS WELL.
--- NOTE | 2020-01-17 18:00 | NUR ---
12:30 PT.S CATHTER WAS 50% PULLED OUT WHEN i WENT INTO ASSESS HER, 3ML BACK ON SALINE FROM BALLOON WHEN ASPIRTAED SUCH BACK. العراقي DISLODGED WHEN CHRISTINE ASSESSED SO REMOVED IT AT THIS TIME. SENT MESSAGE TO MD WELL AT THIS TIME. NO NEW ORDERS FOR RE-INSERTION AT THIS TIME.NO BLEEDING OR TRAUMA AT THIS TIME OBSERVED.
--- NOTE | 2020-01-17 18:03 | NUR ---
16:00 PT. RESTING COMFORTABLY, LINENS CHANGED AT THIS TIME FOR URINE OUTPUT. NO BM TODAY AT ALL DESPITE BEING PLACED ON BEDPAN TODAY. THIS IS AN IMPROVEMENT FROM YESTERDAY WITH FREQUENT LOOSE STOOLS. LAB WORK BACK AND HGB HAS COME UP TODAY. PT. ON 2 LITERS NASAL CANNULA NOW TOLERATING SUCH WELL.
[2020-01-17 20:00] VITALS: BP 127/93
[2020-01-18 00:26] VITALS: BP 146/94
[2020-01-18 03:20] VITALS: BP 151/95
--- NOTE | 2020-01-18 04:16 | NUR ---
ASSUMED CARE 1900. PT ALERT AND ORIENTED. VITALS STABLE WITH MILD ELEVATED HR IN LOWER 100. PT AO X 1. UNCLEAR VERBAL RESPONSES. DENIES CHEST PAIN NAUSEA OR VOMITING. PT KEEPS ON TAKING OFF HER 02, NOTED TO HAVE SOB. RESPIRATIONS 20-26. PT INCONTINENT, NO SKIN BREAKDOWN. AFIB TO SA ON THE MONITOR. PT DOES NOT APPEAR TO BE IN ANY DISTRESS. WILL CONTINUE WITH POC
[2020-01-18 05:36] LABS: ALBUMIN 1.8 g/dL (3.4-5.0); CREATININE 1.6 mg/dL (0.6-1.0); PHOSPHORUS 3.3 mg/dL (2.5-4.9)
[2020-01-18 05:42] LABS: POTASSIUM 2.6 mmol/L (3.5-5.1)
[2020-01-18 05:46] LABS: HEMOGLOBIN 8.8 gm/dL (12.0-15.0); MCH 27.8 pg (26.0-34.0); MCHC 32.5 g/dL (28.0-37.0); MCV 85.4 fL (80.0-100.0); RBC 3.16 mil/uL (4.20-5.00); RDW 16.7 % (10.5-14.5); WBC 32.3 thou/uL (4.0-11.0)
[2020-01-18 07:10] VITALS: BP 145/88
[2020-01-18] MEDS ORDERED: SODIUM BICARBO650 M3 PO (08:23)
[2020-01-18] MEDS ORDERED: PROTONIX40 M1 PO (08:23)
[2020-01-18 11:40] VITALS: BP 140/87
--- NOTE | 2020-01-18 12:22 | NUR ---
Patient transferred out of ICU yesterday. She has not been out of bed. Patient to have therapy evals today. Discussed post acute care. [facility] to eval and son has skilled list to review. Patient has medicare A only, [employer] secondary.
--- NOTE | 2020-01-18 14:05 | NUR ---
VM ON CM OFFICE LINE FROM FELICIANO AT [facility] INDICATING PT WAS ON SERVICE FOR HOME HEALTH RN AND PT AT TIME OF ADMIT. 2N DIRECTOR MARKET INTELLIGENCE UPDATED.
[2020-01-18 17:00] VITALS: BP 150/94
--- NOTE | 2020-01-18 18:02 | NUR ---
ASSUMED CARE 0700. PT ALERT TO SELF AND PLACE. DIFFICULT TO HEAR. DENIES PAIN, DENIES SOB. RESP RATE ELEVATED. SODIUM BICARBANATE STARTED THIS MORNING. PROTONIS DRIP CHANGED TO PROTONIX IVPUSH DAILY. POOR NUTRIONAL INTAKE PT REFUSING TO EAT. ST FOLLOWED UP AND ABLE TO ENCOURGE 6 SPOONS OF MILK SHAKE. PT AND OT EVAL TODAY C PATIENT UP TO BEDSIDE CHAIR THIS AFTERNOON. 2 VOIDS AND 1 LOOSE STOOL. UP WITH MOD ASSIST X1. REPLACE POTASSIUM AND MAGNISIUM. SON BEDSIDE TODAY WITH UPDATES GIVEN. PT CLOSE TO NURSES STATION FOR OVERSIGHT.
[2020-01-18 18:13] LABS: MAGNESIUM 1.7 mg/dL (1.8-2.4)
[2020-01-18 18:42] LABS: POTASSIUM 2.6 mmol/L (3.5-5.1)
[2020-01-18 20:30] VITALS: BP 155/90
[2020-01-18 21:50] LABS: URINE BILIRUBIN NEGATIVE (Negative); URINE BLOOD 2+ (Negative); URINE CLARITY CLEAR; URINE COLOR YELLOW; URINE GLUCOSE-RANDOM* NEGATIVE (Negative); URINE KETONES NEGATIVE (Negative); URINE LEUKOCYTES NEGATIVE (Negative); URINE NITRITE NEGATIVE (Negative); URINE PROTEIN (DIPSTICK) TRACE (Negative); URINE SPECIFIC GRAVITY 1.015 (1.005-1.035); URINE UROBILINOGEN 0.2 E.U./dl (0.2-1.0)
[2020-01-18 22:18] LABS: BACTERIA 1-9 Few /HPF (None Seen); CASTS None Seen /LPF (None Seen); CRYSTALS None Seen /LPF (None Seen); SQUAMOUS 0-3 Few /LPF (0-3); URINE RBC 0-2 Rare /HPF (0-2); URINE WBC None Seen /HPF (0-5)
--- NOTE | 2020-01-19 03:20 | NUR ---
ASSUMED CARE 1900. PT CONFUSED, ANXIOUS, AND RESTLESS. WHEEZING AND COURSE LUNG SOUNDS. RT NOTIFIED FOR BREATHING TREATMENT. PT PULLED OUT HER PICC LINE AND HER LEFT JAGULAR IV. NPO NOTIFIED FOR IV TEAM CONSULT, POSSIBLE PICC LINE REPLACEMENT. HOUSE SUP NOTIFIED , NEW IV STARTED TO THE RIGHT BREAST BY HOUSE SUP. TACHYCARDIA ON THE MONITOR. ATIVAN 0.25 MG GIVEN X 1 FOR RESTLESSNESS. WILL CONTINUE TO VRNIM2O. PT CURRENTLY RESTING, NO APPARENT DISTRESS. WILL CONTINUE TO FOLLOW.
[2020-01-19 04:45] VITALS: BP 130/87
[2020-01-19 05:44] LABS: ALBUMIN 1.9 g/dL (3.4-5.0); CALCIUM 7.8 mg/dL (8.5-10.1); CREATININE 1.2 mg/dL (0.6-1.0); PHOSPHORUS 2.9 mg/dL (2.5-4.9); POTASSIUM 3.1 mmol/L (3.5-5.1)
[2020-01-19 07:24] VITALS: BP 170/114
[2020-01-19 09:56] LABS: HEMATOCRIT 27.5 % (37.0-47.0); HEMOGLOBIN 9.2 gm/dL (12.0-15.0); MCH 28.1 pg (26.0-34.0); MCHC 33.3 g/dL (28.0-37.0); MCV 84.4 fL (80.0-100.0); RBC 3.26 mil/uL (4.20-5.00); RDW 16.5 % (10.5-14.5); WBC 39.6 thou/uL (4.0-11.0)
--- NOTE | 2020-01-19 11:32 | NUR ---
ASSUMED CARE 0700. PT GREETED PRIMARY NURSE. ALERT TO SELF, DENIES PAIN, DENIES SOB. REPEATEDLY REMOVED NASAL CANNULA, PICC HECTOR REPLACED. CARDIAC MEDICATIONS CHANGED TO PO EXPRESSED TO CARDIAC CLINICAL HAEMATOLOGIST PT ONLY TOOK 6 SPOONFULLS OF MILK SHAKE ON SUNDAY 12/17. PT TOOK MEDS PO CRUSHED WITH APPLE SAUCE. APPEARS TO HAVE PAIN AND DIFFICULTY WITH SWALLOWING. POTASSIUM IMPROVING. CONTINUES ON IV FLUIDS. INCONTINENT OF BLADDER. ASSIST X2 FOR TRANSFERS. PT AND OT FOLLOWING. CALL LIGHT IN REACH. STAFF ANTICIPATES NEEDS.
--- NOTE | 2020-01-19 14:08 | NUR ---
Nutrition: Prolonged poor oral intake-severe malnutrition. +dysphagia. REC change IVFs to Clinimix PPN at same rate. 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
--- NOTE | 2020-01-19 14:35 | NUR ---
PATIENT SEEN FOR REAHB CONSULT ON 01/18/20 BY LÓPEZ HAMILTON NP WITH DR. GUILLEN. PATIENT UNLIKELY TO TOLERATE 3 HOURS OF THERAPY A DAY AND APPEARS NOT TO LIKE PARTICIPATION IN [facility]IV[facility]. AT THIS TIME, GROUP HOME FACILTY IS RECOMMENDED FOR D/C DESTINATION. MOTION STUDY ENGINEER INFORMED. THANK YOU FOR THIS REFERAL.
--- NOTE | 2020-01-19 14:57 | NUR ---
SW reviewed chart and spoke with nursing and attending physician. Pt is not ready for discharge to post-acute yet. [facility] is unable to accept pt. Recommendation made for SNF placement. AGA met with pt and son at bedside to discuss discharge plan. Pt's son states he will review the list over the weekend and discuss with family. Pt with orders to transfer to med/surg. AGA is following to assist as needed with discharge planning.
--- NOTE | 2020-01-19 17:39 | NUR ---
VAT CONSULTED FOR A PICC FOR BICARB, ZOSYN, PROTONIX, ETC. 5FRTLPICC PLACED RUABRACHIAL AND WRAPPED TO DISCOURAGE HER FROM PULLING IT OUT. TIP AT THE DSVC PER CXR
--- NOTE | 2020-01-19 17:41 | NUR ---
ASSUMED CARE 0700. PROGRESSING SLOWLY, REFUSING TO EAT. TAKING PO MEDS CRUSHED C APPLE SAUCE AND THICKENED LIQUIDS. VOID IN COMMODE/BEDPAN, NO BM TODAY. PT ALERT TO SELF, CONFUSED, DIFFICULT TO UNDERSTAND AT TIMES. NEW PICC PLACED. PULLS OFF NASAL CANNULA. SON WOULD LIKE A CALL FROM HOSPITALIST TO REVIEW HIS QUESTIONS. PT WILL DC TO SKILLED ONCE STABLE.
[2020-01-19 20:00] VITALS: BP 159/84
[2020-01-20 00:01] VITALS: BP 147/97
[2020-01-20 03:30] VITALS: BP 154/106
--- NOTE | 2020-01-20 04:14 | NUR ---
ASSUMED PT CARE AT AROUND MIDNIGHT. PT OBSERVED VERY RESTLESS IN BED. SHE KEEPS TAKING OXYGEN OFF. ONE LEG MOSTLY HANGING OFF THE BED. PT MUMBLING "HELP ME". I WENT IN SEVERALLY TO TALK TO PATIENT. SHE WANTED TO HOLD MY HAND.AT SOME POINT I ASKED HER WHAT SHE NEEDS AND SHE SAID FRIENDSHIP.THERAPUTIC EAR PRVIDED. PT IS INCONTINENT. PICC TO YOLANDA. AFIB ON THE MONITOR, RATE IN THE UPPER 90'S. DIFFICULT SPEECH. SOA NOTED AND NILES WITH ALL THE MOVING AROUND SHE IS DOING IN BED.WILL CONTINUE WITH POC.
[2020-01-20 05:36] LABS: ALBUMIN 1.8 g/dL (3.4-5.0); CREATININE 1.1 mg/dL (0.6-1.0)
[2020-01-20 05:43] LABS: POTASSIUM 2.5 mmol/L (3.5-5.1)
[2020-01-20 07:08] VITALS: BP 159/91
[2020-01-20 11:05] VITALS: BP 158/91
[2020-01-20 15:46] VITALS: BP 156/93
--- NOTE | 2020-01-20 17:39 | NUR ---
ASSESSMENT DOCUMENTED. PT RESTLESS. PT COMBATIVE AT TIMES. PT SON AT THE BEDSIDE. PT RESTING IN BED WITH CALL LIGHT IN REACH. WILL CONTINUE TO MONITOR. CALL LIGHT IN REACH. BED ALARM ON. PT MORE VERBAL TODAY.
[2020-01-20 19:16] VITALS: BP 158/95
--- NOTE | 2020-01-21 01:05 | NUR ---
ASSUMED PT CARE AT THE CHANGE OF SHIFT, PT IS AWAKE, A&O TO PERSON AND PLACE, AFIB ON THE MONITOR, RATES CONTROLLED, PT IS RESTLESS AND KEEPS PULLING HER GOWN OFF, RIGT LEG HANGING ON THE SIDE OF BED, 4 SIDE RAILS UP FOR SAFETY, CALL LIGHT WITHIN REACH, ATTEMPTED TO PUT BIPAP ON THE PATIENT, PT COULDNT KEEP IT IT ON, PT KEP PULLING ON IT, O2SATS IN THE LOW 90S, ASSESSMENTS CHARTED, MEDICATED ORDERED, PT IS LAYING IN BED, NO DISTRESS NOTED AT THIS TIME, MORE VERBAL
[2020-01-21 03:00] VITALS: BP 135/93
[2020-01-21 06:09] LABS: ALBUMIN 1.8 g/dL (3.4-5.0); CALCIUM 8.4 mg/dL (8.5-10.1); CREATININE 1.2 mg/dL (0.6-1.0); MAGNESIUM 1.9 mg/dL (1.8-2.4); PHOSPHORUS 3.7 mg/dL (2.5-4.9); POTASSIUM 4.3 mmol/L (3.5-5.1)
[2020-01-21 08:05] VITALS: BP 142/82
[2020-01-21 11:57] VITALS: BP 112/72
--- NOTE | 2020-01-21 16:48 | NUR ---
ASSESSMENT CHARTED. VERY RESTLESS THIS MORNING. HAS BEEN SLEEPING ON AND OFF THIS SHIFT. APPETITE POOR. HAD DIFFICULTY SWALLOWING CRUSHED PILLS IN APPLE SAUCE. DR. SHARMA NOTIFIED. RT TREATMENT PROVIDED ORDERED. PPN STARTED. SON AT THE BEDSIDE. PROGRESSING VERY SLOWLY TOWARDS DISCHARGE GOAL.
[2020-01-21 16:51] VITALS: BP 127/92
[2020-01-21 20:20] VITALS: BP 141/85
[2020-01-22 03:06] VITALS: BP 143/89
--- NOTE | 2020-01-22 03:42 | NUR ---
PT ALERT TO SELF WILL FOLLOW DIRECTIONS BUT REFUSES CPAP AND O2 SAT MONITOR, NEEDS FREQUENT REMINDER TO KEEP O2 IN, RESTLESS AND MOVING ALL OVER THE BED, SCDS ON, DENIES PAIN, REFUSING PO LQUIDS, PPN INFUSING IN L UPPER PICC THAT IS COBANED, HEART MONITOR PLACED ON BACK, FREQUENT ORIENTATION PROVIDED, WILL CON'T TO MONITOR PER PPOC.
[2020-01-22 07:00] VITALS: BP 137/79
--- NOTE | 2020-01-22 10:49 | NUR ---
spoke with son regarding post acute list. Son reports he really has not made a decision on skilled list. He wants to knwo the process. Reviewed transition to skilled care and home with HH once stronger. In discussion alerted to son facilities are not allowing visitors like the hospital. Son reports if he is not allowed to visit he is not interested in skilled care. He reports he will take her home. Patient appears very weak. Plan to update phys.
[2020-01-22 11:15] VITALS: BP 153/93
--- NOTE | 2020-01-22 11:22 | NUR ---
Nutrition: Pt continues to eat very litle, bites of meals/supplements typically. Feeding tube not an option and noted possible need hospice. If pt able to tolerate additional fluid, REC increase PPN to run at 80 mL/hr and add 250 ml 20% lipids daily to meet 63-100% of needs. Severe malnutrition present.
[2020-01-22 16:00] VITALS: BP 156/96
--- NOTE | 2020-01-22 16:48 | NUR ---
ASSESSMENT CHARTED. PT ALERT TO SELF. VERY RESTLESS. UNABLE TO TAKE SOME OF HER PO MEDS. SON AT THE BEDSIDE. PROGRESSING VERY SLOWLY TOWARDS GOAL. WILL CONTINUE TO MONITOR.
[2020-01-22 20:38] VITALS: BP 156/109
[2020-01-23 00:21] VITALS: BP 115/72
[2020-01-23 05:15] VITALS: BP 116/83
[2020-01-23 05:57] VITALS: BP 116/83
[2020-01-23 06:32] LABS: CREATININE 1.4 mg/dL (0.6-1.0); PHOSPHORUS 4.1 mg/dL (2.5-4.9); POTASSIUM 5.2 mmol/L (3.5-5.1)
[2020-01-23 08:40] LABS: TSH 0.731 uIU/mL (0.358-3.740)
--- NOTE | 2020-01-23 10:36 | NUR ---
PATIENT CODED AND AT APPROXIMATELY 0930 HOURS TODAY. MIDDLE SON, MIRA, CAME TO HOSPITAL. CELLPHONE NO. IS . [employer] AT [address] [facility] WILL HANDLE ARRANGEMENTS AT . THIS CREW CALLER WAS PRESENT DURING THE CODE. CODE WAS DISCONTINUED AND PATIENT PRONOUNCED. DOCTOR MAKE TELEPHONE CALL TO HER SON. THE SON ARRIVED IN A BRIEF TIME. HE WAS ALLOWED TO SPEND TIME ALONE IN THE ROOM WITH HIS MOTHER. THIS CREW CALLER ENTERED THE ROOM TO BE WITH THE SON. WE DID LIFE REVIEW AND DISCUSSED HIS MOTHER. STAFF HAD OBSERVED HIM TO BE VERY FAITHFUL TO COME VISIT HER AND DO WHAT HE COULD TO HEP HER. THIS CHAPAIN ANSWERED QUESTIONS ABOUT THE PROCESS AND WHAT HAPPENS AFTER THIS TIME TO HIS MOTHER'S BODY. THE SON SIGNED THE NECESSARY PAPERWORK AND TOOK HER VALUABLES. HE WANTED TO LEAVE AND MAKE TELEPHONE CALLS. STAFF THAT CARED FOR HIS MOTHER CAME INTO [place] WE WERE LEAVING . THEY PASSED ON CONDOLENCES AND SHOWED THEIR APPRECIAITON FOR WHAT HE HAD DONE FOR HER. THIS CREW CALLER WALKED HIM DOWN TO SECURITY OFFICE, MADE SURE ALL HIS QUESTIOLNS WERE ANSWERED. I TOLD CHIKA HE HAD HELPED HIS MOTHER FINISH WELL. .
--- NOTE | 2020-01-23 19:29 | NUR ---
ASSUMED CARE PT SHIFT CHANGE. ASSESSMENT CHARTED. UPON ASSESSMNET OF PT, IV ACCESS HAD BEEN DISCONTINUED, ATTEMPTED TO START IV, UNSUCCESSFUL AT THIS TIME. REQUIRING IV NURSE TO PLACE LINE. VSS. MEDS NOT GIVEN PT REFUSING FOOD AND DRINK. PT AWAKE, ACKNOWLEDGES WHEN NAME IS CALLED, BUT DOES NOT RESPOND TO QUESTIONS. BLOOD SUGAR 67, ATTEMPTED TO GIVE PATIENT JUICE WITH SUCCESS. AT APPROX 0925, NOTIFIED BY CENTRAL MONITOR ROOM THAT PT BECAME BRADYCARDIC, IMMEDIATELY ATTENDED TO PT, UPON ENTERING ROOM, PT WAS FOUND PULSELESS, CODE BLUE INITIATED. UNSUCCESSFUL ATTEMPT AT RESUSCITATION. AT 0930 PHYSICIAN DETERMINED TO CONCLUDE RESUSCITATION ATTEMPT. FAMILY NOTIFIED BY PHYSICIAN. SON ARRIVED, COLLECTED BELONGINGS. PACKET COMPLETE. SECURITY NOTIFIED.
--- NOTE | 2020-01-24 08:17 | HC ---
[facility] [place] [address] CONSULTATION Name: ZEINA HASTINGS Room #: 203-P [facility] IN M.R.#: [id number] Admission: 01/14/20 Attend Phys: Christian Velarde MD Discharge: 01/23/20 Date of : 54 Report #: [id number] THIS REPORT FOR: cc: FAM - Family physician unknown FAM - Family physician unknown Mike Newberry MD ~ CC: Christian Velarde FAM unknown CECI VALENCIASPENSER DATE OF SERVICE: 01/14/2020 HISTORY OF PRESENT ILLNESS: The patient is a 69-year-old female who was diagnosed with lung cancer last month, started chemotherapy on 12/31 apparently. Almost all the history was obtained through her son who is present in the Emergency Room at this time. She was found by her son being essentially unresponsive at home. Also was noted to have a mix of maroon, dark red blood in the stool at home. The patient has also had reportedly nausea and vomiting with coffee-ground type emesis. No previous history of GI bleed that she is aware of. The son states no history of EGD or colonoscopy in the past. Lately, has been having some diarrhea over the last few days. She has had significant weight loss since June of this year of approximately 40-50 pounds. Again, she started chemotherapy recently. Her hemoglobin on admission is 7.8. Most recent hemoglobin in the computer is 10.7 on 12/26. She has a platelet count of 46,000, white count of 20.6. The patient denies any NSAID use. She does have heartburn symptoms. She is getting a unit of packed cells at this time. The patient was hypotensive on arrival, blood pressure 60/40. Blood pressure is now stabilized, apparently not on oxygen at home. Again unable to get much history at all from the patient. She is speaking. She denies any abdominal pain at this time. PAST MEDICAL HISTORY: Lung cancer. She is followed by Dr. Do. She has been undergoing chemotherapy. Possible history of gastroesophageal reflux disease, hypertension. MEDICATIONS AT HOME: Bystolic, Plendil and nicotine patch. ALLERGIES: No known drug allergies. REVIEW OF SYSTEMS: Limited, but as per HPI. FAMILY HISTORY: Negative for colon cancer or inflammatory bowel disease. SOCIAL HISTORY: Long history of cigarette smoking. Denies any alcohol use. PHYSICAL EXAMINATION: [facility] [address] [place] [address] CONSULTATION Name: ZEINA HASTINGS Room #: 203-P DIS IN M.R.#: [id number] Admission: 01/14/20 Attend Phys: Christian Velarde MD Discharge: 01/23/20 Date of : 54 Report #: [id number] VITAL SIGNS: Temperature is 97.0, pulse 112, respiratory rate 18, blood pressure now is 110/59. GENERAL: She appears lethargic, but again does respond to some questions. HEENT: Sclerae nonicteric. Oropharynx clear. NECK: Supple. CARDIOVASCULAR: Regular rhythm, tachycardic. CHEST: With decreased breath sounds bilaterally. ABDOMEN: Soft. She is nontender, nondistended. Normoactive bowel sounds. EXTREMITIES: No cyanosis, clubbing or edema. LABORATORY DATA: Sodium 156, potassium 2.6, chloride 114, bicarb 13, BUN 59, creatinine 3.1. Her most recent creatinine was 1.2 on 12/26. Glucose 169. AST is 69, total bili 0.3, calcium 9.8, phosphorus 3.8, magnesium 1.9, alk phos 180, ALT is 84, total protein 5.7, albumin 2.0, lactic acid level is 11.4, total LDH is 691. Troponin 0.07. INR 1.2. WBC is 20.6, hemoglobin is 7.8, MCV is 87.5, platelet count is 46,000. ASSESSMENT AND PLAN: Gastrointestinal bleed. The patient is anemic. The patient is also undergoing chemotherapy recently which could drop her counts at this time, elevated white blood cell count and elevated lactic acid level. Agree with CT scan which has been ordered, but not done as yet. The patient is also with increased creatinine and significant electrolyte abnormalities. I had a long discussion with the patient and her son. We would recommend proceeding with an upper endoscopy in the near future when the patient is more stable. Continue to monitor hemoglobin closely. She is receiving a unit of packed cells at this time. She has already been started on Protonix drip. We will continue to follow her closely. Plan is to be admitted to the ICU. Thank you for allowing me to participate in her care. <ELECTRONICALLY SIGNED> By: Mike Newberry MD 01/24/20 0817 1252 [id number] Mike Newberry MD /nt
== END 2020-01-23 09:30 | DRG 871 ==
LOC: ER 10:13 → ICU 12:23 → EROBS 12:23 → 2N 12:23 → ICU 13:29 → 2N 01-16 13:34
PROVIDERS: Emergency Medicine; Hospitalist; Internal Medicine Pulmonary Disease; Nurse Practitioner; Nurse Practitioner Family; Psychiatry & Neurology Neuromuscular Medicine; Psychiatry & Neurology Psychiatry; Specialist; ADMIT Hospitalist; ATTEND Hospitalist
PROC: 02HV33Z Insertion of Infusion Device into Superior Vena Cava, Percutaneous Approach (ICD-10-PCS; principal; 2020-01-14)
PROC: 30233N1 Transfusion of Nonautologous Red Blood Cells into Peripheral Vein, Percutaneous Approach (ICD-10-PCS; principal; 2020-01-14)
PROC: 30233R1 Transfusion of Nonautologous Platelets into Peripheral Vein, Percutaneous Approach (ICD-10-PCS; 2020-01-15)
PROC: 0DB68ZX Excision of Stomach, Via Natural or Artificial Opening Endoscopic, Diagnostic (ICD-10-PCS; 2020-01-16)
DX: A41.9 Sepsis, unspecified organism (principal); J18.9 Pneumonia, unspecified organism; E43 Unspecified severe protein-calorie malnutrition; G93.41 Metabolic encephalopathy; J96.21 Acute and chronic respiratory failure with hypoxia; K25.4 Chronic or unspecified gastric ulcer with hemorrhage; F05 Delirium due to known physiological condition; D62 Acute posthemorrhagic anemia; C34.90 Malignant neoplasm of unspecified part of unspecified bronchus or lung; N17.9 Acute kidney failure, unspecified; N39.0 Urinary tract infection, site not specified; E87.0 Hyperosmolality and hypernatremia; I42.9 Cardiomyopathy, unspecified; B37.0 Candidal stomatitis; J91.0 Malignant pleural effusion; I50.22 Chronic systolic (congestive) heart failure; Z85.118 Personal history of other malignant neoplasm of bronchus and lung; I08.1 Rheumatic disorders of both mitral and tricuspid valves; I27.20 Pulmonary hypertension, unspecified; E87.6 Hypokalemia; R57.8 Other shock; D69.6 Thrombocytopenia, unspecified; I95.9 Hypotension, unspecified; D72.829 Elevated white blood cell count, unspecified; R47.81 Slurred speech; R74.0 Nonspecific elevation of levels of transaminase and lactic acid dehydrogenase [LDH]; E86.0 Dehydration; E87.8 Other disorders of electrolyte and fluid balance, not elsewhere classified; K20.9 Esophagitis, unspecified; G47.00 Insomnia, unspecified; E78.5 Hyperlipidemia, unspecified; E83.42 Hypomagnesemia; F32.9 Major depressive disorder, single episode, unspecified; I11.0 Hypertensive heart disease with heart failure; Z20.828 Contact with and (suspected) exposure to other viral communicable diseases; G47.33 Obstructive sleep apnea (adult) (pediatric); Z79.01 Long term (current) use of anticoagulants; Z79.899 Other long term (current) drug therapy; Z68.28 Body mass index [BMI] 28.0-28.9, adult; J44.9 Chronic obstructive pulmonary disease, unspecified
CPT/HCPCS: 10078; 10081; 27000; 62110; 62900